=== PATIENT | male | born 1955 | race Caucasian/White ===

== ENCOUNTER 2022-12-03 05:56 | Outpatient (REF) | payer MEDICARE, SELFPAY ==
--- NOTE | 2022-12-03 | ECG_ITS ---
Test Reason : z01.818 Blood Pressure : / mmHG Vent. Rate : 073 BPM Atrial Rate : 073 BPM P-R Int : 212 ms QRS Dur : 138 ms QT Int : 414 ms P-R-T Axes : 080 -72 060 degrees QTc Int : 456 ms Sinus rhythm with 1st degree A-V block Right bundle branch block Left anterior fascicular block Bifascicular block Abnormal ECG When compared with ECG of 21-AUG-2017 09:24, SD interval has increased Vent. rate has decreased BY 38 BPM Referred By: Boni Man Electronically Signed By:Satish Richards
[2022-12-03 06:06] LABS: MANUAL DIFF FLAG NO
[2022-12-03 07:40] LABS: Basophils Percent Auto 0.6 % (0-2); Eosinophils Absolute Auto 0.4 X10*3/uL (0.0-0.4); Eosinophils Percent Auto 5.6 % (0-4); Hematocrit 36.3 % (42.0-52.0); Hemoglobin 12.1 g/dl (14.0-18.0); Imm Gran Abs Auto 0.01 X10*3/uL (0.00-0.03); Imm Gran Pct Auto 0.2 % (0.0-0.4); Immature Retic Fraction 11.5 % (2.3-13.4); Lymphocytes Percent Auto 30.7 % (20-40); Mean Corpuscular HGB Conc 33.3 g/dl (31.0-36.0); Mean Corpuscular Hemoglobin 35.3 pg (27.0-33.0); Mean Corpuscular Volume 105.8 fL (80.0-98.0); Mean Platelet Volume 9.9 fL (9.4-12.4); Monocytes Absolute Auto 0.6 X10*3/uL (0.1-1.2); Neutrophils Absolute Auto 3.5 x10*3/uL (2.0-8.3); Neutrophils Percent Auto 53.9 % (45-73); Platelet Count 283 X10*3/uL (160-400); Red Blood Count 3.43 X10*6/uL (4.60-5.80); Red Cell Distribution Width 14.1 % (11.0-16.0); Retic HGB Equivalent 40.8 pg (30.0-35.0); Reticulocyte Percent 1.3 % (0.5-1.8); Reticulocytes Absolute 0.045 X10*6/uL (0.026-0.095); White Blood Count 6.4 X10*3/uL (4.8-10.8)
[2022-12-03 08:18] LABS: Estimated Average Glucose 100 mg/dL; Hemoglobin A1c % 5.1 %
[2022-12-03 08:30] LABS: Alanine Aminotransferase 20 U/L (0-40); Alkaline Phosphatase 82 U/L (39-117); Anion Gap 13 (12-20); Aspartate Amino Transferase 22 U/L (5-37); Bilirubin Total 0.8 mg/dL (0.0-1.0); Blood Urea Nitrogen 16 mg/dL (9-16); Calcium 8.8 mg/dL (8.4-10.2); Carbon Dioxide 27 mmol/L (22-29); Chloride 107 mmol/L (96-108); Estimated Glomerular Filt Rate > 60; Glucose Random 92 mg/dL (60-115); Iron 102 mcg/dL (45-160); Percent Iron Saturation 40 % (15-50); Potassium 4.7 mmol/L (3.3-5.1); Sodium 142 mmol/L (135-145); Total Iron Binding Capacity 256 mcg/dL (228-428); Total Protein 6.5 g/dL (6.5-8.0); Unsaturated Iron Binding 154 ug/dL
[2022-12-03 09:00] LABS: Ferritin 313 ng/mL (20-250); Folate 11.3 ng/mL (> or = 4.0); Vitamin B12 484 pg/mL (200-900)
== END 2022-12-03 05:57 | disposition home or self-care (01) ==
LOC: HO.LAB 05:56
PROVIDERS: PCP Internal Medicine; Visit Provider Internal Medicine
DX: Z01.818 Encounter for other preprocedural examination (principal); K21.9 Gastro-esophageal reflux disease without esophagitis; R73.02 Impaired glucose tolerance (oral); D64.9 Anemia, unspecified
CPT/HCPCS: 36415; 80053; 82607; 82728; 82746; 83036; 83540; 84443; 85025; 85045; 93005

== ENCOUNTER 2023-07-28 11:21 | Outpatient (AMB) | payer MEDICARE, SELFPAY ==
[2023-07-28 11:22] VITALS: BP 136/68; PULSE 73; O2SAT 95; BMI 24.1
--- NOTE | 2023-07-28 11:22 | MHC.PC.OV ---
Vital Signs 07/28/23 11:22 Height 5 ft 11 in Weight 173 lb BMI 24.1 BP 136/68 Blood Pressure Location Lt brachial Position Sitting Pulse 73 Pulse Source Pulse Oximeter Pulse Oximetry (%) 95 Oxygen Delivery Method Room Air Intake Visit Reasons: Reschedule of appointment Allergies enoxaparin Allergy (Mild, Verified 07/28/23 11:23) Hypertension Medication List - Last Reconciled 07/28/23 by Boni Man MD cyanocobalamin (vitamin B-12) 3,000 mcg PO DAILY meloxicam 15 mg PO DAILY PRN Tobacco use date assessed: 03/11/23 Fall risk assessment: No Falls in past year Last assessed Fall Risk: 07/28/23 Dental Screening Dental Screen Date: 07/28/23 Did you have a dental visit in the last 12 months?: Yes Did you have a dental problem in the last 6 months where you did not have access to dental care?: No Was dental information given to patient?: Patient has dentist HPI Reschedule of appointment HPI Details 68-year-old male with a history of impaired glucose tolerance GERD chronic anemia with lumbar spinal stenosis coming in for follow-up. Patient was last seen in November 2022 and blood work was requested. Patient had laminotomy, decompression, partial facetectomy, neural foraminotomy L4-L5 right February 2023 Dr. Rahman patient has peripheral neuropathy has been followed up by Neurology. With question of Sjogren's patient also sees Rheumatology elevated MARLON and Ro antibody with neuropathy patient is a retired grayson diagnosis of undifferentiated connective tissue disease patient has been advised to monitor. Neurology [facility] will have EMG done. surgery did help pain radiating to R leg. will be seeing Gastro for colon test 08/10/2023. vision 12/[address] Hopkins. R shoulder pain deny fall but does cast fishing. patient also seen pulmonary - due to hx of problem with chest xray but so far has been good. had similar pain(dx pancreatic ca) on pain on the back R upper . [facility] Medical History (Updated 07/28/23 @ 11:54 by Boni Man MD) CTS (carpal tunnel syndrome) GERD (gastroesophageal reflux disease) Anemia Left leg DVT Surgical History (Updated 07/28/23 @ 11:52 by Boni Man MD) History of cataract surgery S/P left knee arthroscopy History of laminectomy Hip osteoarthritis Social History (Updated 03/11/23 @ 10:34 by MOUSTAPHA Dinero) Housing: House Alcohol intake: current Alcohol intake frequency: 0-2 drinks per day Alcohol type: beer Patient Tobacco Use Status: Never used Tobacco e-Cigarette/Vaping Use: Never Used Second Hand Smoke Exposure: No service: No Current occupational status: retired Cognitive needs: Yes (cane) Hearing needs: No Vision needs: No Questionnaire PHQ-9 Over the last 2 weeks, how often have you been bothered by any of the following problems? 1. Little interest or pleasure in doing things: several days 2. Feeling down, depressed, or hopeless: several days (pt lost spouse ) 3. Trouble falling or staying asleep, or sleeping too much: not at all 4. Feeling tired or having little energy: not at all 5. Poor appetite or overeating: not at all 6. Feeling bad about yourself - or that you are a failure or have let yourself or your family down: not at all 7. Trouble concentrating on things, such as reading the newspaper or watching television: not at all 8. Moving or speaking so slowly that other people could have noticed. Or the opposite - being so fidgety or restless that you have been moving around a lot more than usual: not at all 9. Thoughts that you would be better off or of hurting yourself in some way: not at all Total score: 2 Depression Screening Interpretation: Negative Depression Screening Done: Yes Source: Developed by Drs. Silvano Boudreaux, Dinah Pabon, Jacky Drummond and colleagues, with an educational mary ellen from [employer]. Thrive Questionnaire Date Thrive assessed: 12/01/22 AUDIT C Alcohol Use Questionnaire (AUDIT-C) 1. How often do you have a drink containing alcohol?: Never 3. How often do you have six or more drinks on one occasion?: Never Total Score: 0 ALEJANDRA-7 AMB Questionnaire ALEJANDRA-7 Date ALEJANDRA - 7 assessed: 12/01/22 Source: Developed by Drs. Silvano Boudreaux, Jacky Mortensen and colleagues, with an educational mary ellen from [employer]. Physical exam (Primary Care) Vital Signs: Last Vital Signs Pulse 73 07/28/23 11:22 BP 136/68 07/28/23 11:22 Pulse Ox 95 07/28/23 11:22 Oxygen Delivery Method Room Air 07/28/23 11:22 BMI result Body Mass Index 24.1 Tobacco/Smoking Status: Tobacco use Status Tobacco use date assessed 03/11/23 07/28/23 11:27 Patient Tobacco Use Status Never used Tobacco 07/28/23 11:27 e-Cigarette/Vaping Use Never Used 07/28/23 11:27 PHQ-9: PHQ-9 Score PHQ-9: Total score 2 07/28/23 11:27 Depression Screening Interpretation: Negative Thrive Assessment: Date of Thrive Assessment Date Thrive assessed 12/01/22 07/28/23 11:27 Const General: alert; No acute distress Eyes Conjunctivae: conjunctivae normal Resp Auscultation: clear to auscultation bilaterally Cardio Rate: regular rate Rhythm: regular rhythm GI Inspection: Yes normal to inspection Extrem General: Yes normal to inspection and No edema Assessment and Plan Assessment & Plan (1) Lumbar spinal stenosis: Comment: August 2020 bilateral chronic diffuse distal makes demyelinating and axonal lower extremity sensorimotor polyneuropathy lumbar spinal stenosis with cauda equina compression status post decompression February 2023 laminotomy, decompression, partial facetectomy, L4-L5 right Dr. Rahman Code(s): M48.061 - Spinal stenosis, lumbar region without neurogenic claudication Qualifiers: Neurogenic claudication status: with neurogenic claudication Qualified Code(s): M48.062 - Spinal stenosis, lumbar region with neurogenic claudication Plan: February 2023 Dr. Rahman surgery (2) Anemia: Comment: Bone marrow biopsy June 2020 unremarkable Code(s): D64.9 - Anemia, unspecified Plan: Chronic and stable (3) GERD (gastroesophageal reflux disease): Code(s): K21.9 - Gastro-esophageal reflux disease without esophagitis Plan: Avoid the foods that causes that usually spicy foods, tomato products, juices, coffee, soda and foods that your sensitive to. After eating do not lie down, allow 3-4 hours before in lie down. And keep the head of bed above 30 degrees to avoid the acid from going up. (4) Undifferentiated connective tissue disease: Code(s): M35.9 - Systemic involvement of connective tissue, unspecified Plan: Patient is being followed up by Rheumatology and continuing to be monitored (5) Bicipital tendinitis of right shoulder: Code(s): M75.21 - Bicipital tendinitis, right shoulder Plan: Discussed about the diagnosis if persist referral to ortho for possible injection Orders: Orders US abdomen complete Today K21.9 - Gastro-esophageal reflux disease without esophagitis, R79.89 - Other specified abnormal findings of blood chemistry Coding Level of Care Code Est Pt Level 4 (14958) Diagnoses Spinal stenosis of lumbar region with neurogenic claudication M48.062 Neurogenic claudication status: with neurogenic claudication Anemia D64.9 GERD (gastroesophageal reflux disease) K21.9 Undifferentiated connective tissue disease M35.9 Bicipital tendinitis of right shoulder M75.21
== END 2023-07-28 12:05 | disposition home or self-care (01) ==
PROVIDERS: PCP Internal Medicine; Visit Provider Internal Medicine
DX: M48.062 Spinal stenosis, lumbar region with neurogenic claudication (principal); D64.9 Anemia, unspecified; K21.9 Gastro-esophageal reflux disease without esophagitis; M35.9 Systemic involvement of connective tissue, unspecified; M75.21 Bicipital tendinitis, right shoulder
CPT/HCPCS: 99214

== ENCOUNTER 2023-08-12 08:48 | Outpatient (REF) | payer MEDICARE, SELFPAY ==
--- NOTE | ~2023-08-12 | US_ITS ---
EXAMINATION: US ABDOMEN COMPLETE CLINICAL INFORMATION: Other specified abnormal findings of blood chemistry. COMPARISON: None available. TECHNIQUE: Real-time imaging of the abdominal viscera. Technically limited study secondary to bowel gas and body habitus. FINDINGS: Exam limited, bowel gas obscured retroperitoneal structures. PANCREAS: Pancreas not well visualized obscured mostly by bowel gas. ABDOMINAL AORTA: Not fully visualized, nonaneurysmal. Measure up to 2.5 cm there are atheromatous plaques. INFERIOR VENA CAVA: Visualized portions are normal. LIVER: Normal. The liver is normal in size. The liver contour is normal. Parenchymal echogenicity is normal. No focal hepatic lesion. There is no intrahepatic biliary duct dilatation seen. GALLBLADDER: Echogenic material in the gallbladder probably gallbladder debris The gallbladder is physiologically distended without evidence of stones, polyps, wall thickening or pericholecystic fluid. COMMON BILE DUCT: Normal in caliber measuring 0.13 cm in diameter. RIGHT KIDNEY: Normal. No hydronephrosis. No renal calculi or focal parenchymal lesions. The kidney measures 11.0 cm in maximum dimension. LEFT KIDNEY: Cyst in the left kidney middle pole 9 x 7 x 7 mm. No hydronephrosis or renal calculi. The kidney measures 11.2 cm in maximum dimension. SPLEEN: Normal. The spleen measures 8.9 cm in maximum dimension. FREE FLUID: None. US/US abdomen complete IMPRESSION: * Exam limited by patient's body habitus and bowel gas. * Echogenic material in the gallbladder probably gallbladder debris. * Left renal cyst. * Pancreas not well visualized obscured by bowel gas.
== END 2023-08-12 08:49 | disposition home or self-care (01) ==
LOC: HO.HMGCX 08:48
PROVIDERS: PCP Internal Medicine; Visit Provider Internal Medicine
DX: R79.89 Other specified abnormal findings of blood chemistry (principal); K21.9 Gastro-esophageal reflux disease without esophagitis
CPT/HCPCS: 76700

== ENCOUNTER 2023-08-28 08:28 | Day surgery (SDC) | payer MEDICARE, SELFPAY ==
[2023-08-26 13:46] VITALS: BMI 24.1
--- NOTE | 2023-08-26 14:19 | HO.ANESPROP2 ---
Documented by User: Alyssa Suresh NP 08/26/23 14:19 HPI - Anesthesia Eval Consult details Narrative: 68yo M for Colonoscopy PMFSH Active Problems Active Problems: All Active Problems (Updated 08/26/23 @ 12:29 by Latasha Brown RN) Bicipital tendinitis of right shoulder (Acute) Undifferentiated connective tissue disease (Acute) COVID-19 virus infection (Acute) First degree AV block (Acute) Preop exam for internal medicine (Acute) Impaired glucose tolerance (Acute) Impacted cerumen of both ears (Acute) Laceration (Acute) Lumbar spinal stenosis (Acute) GERD (gastroesophageal reflux disease) (Acute) Anemia (Acute) Left leg DVT (Acute) Past Medical History Medical History Inguinal hernia Epigastric pain Neuropathy Cervical radiculitis Epigastric hernia Spinal stenosis CTS (carpal tunnel syndrome) GERD (gastroesophageal reflux disease) Anemia Left leg DVT Surgical History Surgical History History of lumbar laminectomy for spinal cord decompression History of carpal tunnel release History of bone marrow biopsy Status post left hip replacement History of cataract surgery S/P left knee arthroscopy History of laminectomy Hip osteoarthritis Social History Social History Housing: House Alcohol intake: current Alcohol intake frequency: 0-2 drinks per day Alcohol type: beer Patient Tobacco Use Status: Never used Tobacco e-Cigarette/Vaping Use: Never Used Second Hand Smoke Exposure: No Use of substances other than those prescribed or required for medical reasons: No Are you DNR?: No Advance Directives: No Advance Directives Information Provided: Yes service: No Current occupational status: retired Cognitive needs: Yes (cane) Hearing needs: No Vision needs: No Meds Allergies Allergy/AdvReac Type Severity Reaction Status Date / Time enoxaparin Allergy Mild Hypertensio Verified 08/28/23 08:38 n Home Medications Medication Instructions Recorded Confirmed Last Taken Type meloxicam 15 mg tablet 15 mg PO DAILY PRN Pain 12/01/22 08/26/23 07/24/23 History cyanocobalamin (vitamin B-12) 3,000 mcg PO DAILY 07/28/23 08/26/23 Unknown History 3,000 mcg capsule Exam Height,Weight and Vital Signs: Height 5 ft 11 in Weight 78.471 kg Assessment and Plan Assessment Anesthesia Assessment: Chart Reviewed Documented by User: Marina Hardin MD 08/28/23 09:06 [facility] Past Medical History Medical History Inguinal hernia Epigastric pain Neuropathy Cervical radiculitis Epigastric hernia Spinal stenosis CTS (carpal tunnel syndrome) GERD (gastroesophageal reflux disease) Anemia Left leg DVT Surgical History Surgical History History of lumbar laminectomy for spinal cord decompression History of carpal tunnel release History of bone marrow biopsy Status post left hip replacement History of cataract surgery S/P left knee arthroscopy History of laminectomy Hip osteoarthritis History of Problems with Anesthesia: No Social History Social History Housing: House Alcohol intake: current Alcohol intake frequency: 0-2 drinks per day Alcohol type: beer Patient Tobacco Use Status: Never used Tobacco e-Cigarette/Vaping Use: Never Used Second Hand Smoke Exposure: No Use of substances other than those prescribed or required for medical reasons: No Are you DNR?: No Advance Directives: No Advance Directives Information Provided: Yes service: No Current occupational status: retired Cognitive needs: Yes (cane) Hearing needs: No Vision needs: No Meds Allergies Allergy/AdvReac Type Severity Reaction Status Date / Time enoxaparin Allergy Mild Hypertensio Verified 08/28/23 08:38 n Home Medications Medication Instructions Recorded Confirmed Last Taken Type meloxicam 15 mg tablet 15 mg PO DAILY PRN Pain 12/01/22 08/26/23 07/24/23 History cyanocobalamin (vitamin B-12) 3,000 mcg PO DAILY 07/28/23 08/26/23 Unknown History 3,000 mcg capsule Exam Airway Mallampati Class: II TM Dist: >3cm Neck ROM: Full Loose/Missing/Broken Teeth: No Heart: RRR Lungs: CTA Assessment and Plan Assessment Anesthesia Assessment: Anesthesia Plan Discussed Final Anesthetic Review History of Problems with Anesthesia: No NPO: Yes ASA Class: II Final Preanesthetic Review: Meds/Allgs Chart Reviewed, Consent Obtained/Reviewed and Anes Risks/Benef Reviewed Patient Risk: Low Procedure Risk: Low Anesthetic Plan Anesthetic Plan: MAC: Disposition: Standard PACU
[2023-08-28 08:32] VITALS: BMI 22.9
[2023-08-28 08:54] VITALS: BP 136/77; PULSE 109; RESP 16; TEMP 36.6; O2SAT 99
[2023-08-28] MEDS: Lactated Ringers 1,000 ML 100 ML IVCONT (08:55)
--- NOTE | 2023-08-28 09:16 | MHC.SHP ---
Pre-Procedural Eval Section A Date of Service: 08/28/23 The patient is an INPATIENT: No Changes since office visit: No Cold of Flu in the past 2 weeks, No New Medical Problems, No Changes in Medication and No Patient answered all questions The History & Physical has been completed within 30 days and I have reviewed it.: Yes Section B Chief Complaint: Encounter for screening for malignant neoplasm of Allergies: Allergies Allergy/AdvReac Type Severity Reaction Status Date / Time enoxaparin Allergy Mild Hypertensio Verified 08/28/23 08:38 n Plan I have reviewed the history and physical and performed a pertinent physical examination on my patient. No changes have occurred unless specified. Time Spent With Patient Time: Total time managing care of this patient today ____ minutes.
[2023-08-28 09:59] VITALS: BP 90/61; PULSE 85; RESP 16; TEMP 36.4; O2SAT 96
[2023-08-28 10:14] VITALS: BP 112/66; PULSE 86; RESP 16; TEMP 36.4; O2SAT 96
--- NOTE | 2023-08-28 10:20 | OP_ITS ---
DATE OF SERVICE: 08/28/2023 SURGEON: Dwaine Garcia MD INDICATIONS: Colon cancer screening. PREOPERATIVE DIAGNOSIS: POSTOPERATIVE DIAGNOSIS: PROCEDURE PERFORMED: Colonoscopy to the terminal ileum with snare polypectomy. ESTIMATED BLOOD LOSS: COMPLICATIONS: ANESTHESIA: Monitored anesthesia care. ASSISTANTS: SPECIMENS: DESCRIPTION OF PROCEDURE: A history and physical were performed. The risks and benefits of the procedure were explained to the patient and informed consent was obtained. The patient was placed in the left lateral decubitus position. A digital rectal exam was performed and was found to be normal. The Olympus pediatric video colonoscope was introduced into the rectum and advanced to the cecum. The cecum was identified by transillumination, palpation, and identification of ileocecal valve. Examination was performed and the scope was removed. He tolerated the procedure well and was taken to recovery in stable condition. FINDINGS: The terminal ileum was examined and appeared normal. The visualized colonic mucosa was normal. The quality of the prep was good. A single polyp measuring 10 mm was identified in the right colon and removed with snare. The polyp was recovered via suction. No other polyps were identified. There was mild sigmoid diverticulosis. Retroflexed examination showed moderate-sized internal hemorrhoids. IMPRESSION: Colon polyp. RECOMMENDATION: Follow up with the biopsy results. MD CHARLES Lopez/LOWL / [id number]
== END 2023-08-28 10:28 | disposition home or self-care (01) ==
PROVIDERS: PCP Internal Medicine; Visit Provider Internal Medicine Gastroenterology
PROC: 0DJD8ZZ Inspection of Lower Intestinal Tract, Via Natural or Artificial Opening Endoscopic (ICD-10-PCS; CPT 45378; principal; 2023-08-28 09:50)
DX: Z12.11 Encounter for screening for malignant neoplasm of colon (principal); D12.4 Benign neoplasm of descending colon; K57.30 Diverticulosis of large intestine without perforation or abscess without bleeding; K64.8 Other hemorrhoids; I44.0 Atrioventricular block, first degree; K21.9 Gastro-esophageal reflux disease without esophagitis; D64.9 Anemia, unspecified; Z86.718 Personal history of other venous thrombosis and embolism; Z79.899 Other long term (current) drug therapy
CPT/HCPCS: 45385; 88305; J2250; J2704

== ENCOUNTER 2023-12-03 08:53 | Outpatient (AMB) | payer MEDICARE, SELFPAY ==
[2023-12-03 08:59] VITALS: BP 140/70; PULSE 82; O2SAT 98; BMI 24.0
--- NOTE | 2023-12-03 08:59 | AM.OFFVISMDC ---
Intake Vital Signs 12/03/23 08:59 Height 5 ft 11 in Weight 172 lb BMI 24.0 BP 140/70 H Blood Pressure Location Lt brachial Position Sitting Pulse 82 Pulse Source Pulse Oximeter Pulse Oximetry (%) 98 Oxygen Delivery Method Room Air Intake Visit Reasons: ANNUAL Intake Note: Patient states he did have coffee prior to appt. Allergies enoxaparin Allergy (Mild, Verified 12/03/23 09:00) Hypertension Medication List - Last Reconciled 12/03/23 by Boni Man MD cyanocobalamin (vitamin B-12) 3,000 mcg PO DAILY HPI ANNUAL HPI Details 68-year-old male with a history of lumbar spinal stenosis chronic anemia GERD undifferentiated connective tissue disease coming in for physical exam last seen in July 2023. Colonoscopy done August had a polyp that was negative. Patient has also seen Pulmonary normal. Ultrasound done showing gallbladder debris left renal cyst. MRI back done also with severe spinal stenosis. [facility] Medical History Inguinal hernia Epigastric pain Neuropathy Cervical radiculitis Epigastric hernia Spinal stenosis CTS (carpal tunnel syndrome) GERD (gastroesophageal reflux disease) Anemia Left leg DVT Surgical History History of lumbar laminectomy for spinal cord decompression History of carpal tunnel release History of bone marrow biopsy Status post left hip replacement History of cataract surgery S/P left knee arthroscopy History of laminectomy Hip osteoarthritis Social History (Updated 12/03/23 @ 09:36 by Boni Man MD) Housing: House Alcohol intake: current Alcohol intake frequency: 0-2 drinks per day Alcohol type: beer Comment: QOD 1-2 drinks Patient Tobacco Use Status: Never used Tobacco e-Cigarette/Vaping Use: Never Used Second Hand Smoke Exposure: No service: No Current occupational status: retired Cognitive needs: Yes (cane) Hearing needs: No Vision needs: No Questionnaire Medicare Wellness Checkup [age] What gender do you identify with?: male During the past 4 weeks, how much have you been bothered by emotional problems such as feeling anxious, depressed, irritable, sad or downhearted, and blue?: slightly During the past 4 weeks, has your physical & emotional health limited your social activities with family, friends, neighbors, or groups?: slightly During the past 4 weeks, how much bodily pain have you generally had?: very mild pain During the past 4 weeks, was someone available to help you if you needed & wanted help?: yes, as much as I wanted During the past 4 weeks, what was the hardest physical activity you could do for at least 2 minutes?: moderate Can you get to places out of walking distance without help? (For eg., can you travel alone on buses, taxis or drive your car?): Yes Can you go shopping for groceries or clothes without someone's help?: Yes Can you prepare your own meals?: Yes Can you do your housework without help?: Yes Because of any health problems, do you need the help of another person with your personal care needs such as eating, bathing, dressing or getting around the house?: No Can you handle your own money without help?: Yes During the past 4 weeks, how would you rate your health in general?: good During the past 4 weeks how have things been going for you?: pretty well Are you having difficulties driving your car?: no Do you always fasten your seat belt when you are in a car?: yes, usually During past 4 weeks, have you been bothered by the following: never: Falling or dizzy when standing up, Sexual problems?, Trouble eating well?, Teeth or denture problems?, Problems using the telephone? and Tiredness or fatigue? Have you fallen 2 or more times in the past year?: No Are you afraid of falling?: No Are you a smoker?: no During the past 4 weeks, how many drinks of wine, beer, or other alcoholic beverages did you have?: 6-9 drinks per week Do you exercise for about 20 minutes 3 or more times a week?: yes, all the time Have you been given information to help with the following?: no: Hazards in your house that might hurt you? and no: Keeping track of your medications? How often do you have trouble taking medicines the way you have been told to take them?: I do not have to take medicine How confident are you that you can control & manage most of your health problems?: very confident What is your race?: White PHQ-9 Over the last 2 weeks, how often have you been bothered by any of the following problems? 1. Little interest or pleasure in doing things: not at all 2. Feeling down, depressed, or hopeless: not at all (pt lost spouse ) 3. Trouble falling or staying asleep, or sleeping too much: not at all 4. Feeling tired or having little energy: not at all 5. Poor appetite or overeating: not at all 6. Feeling bad about yourself - or that you are a failure or have let yourself or your family down: not at all 7. Trouble concentrating on things, such as reading the newspaper or watching television: not at all 8. Moving or speaking so slowly that other people could have noticed. Or the opposite - being so fidgety or restless that you have been moving around a lot more than usual: not at all 9. Thoughts that you would be better off or of hurting yourself in some way: not at all Total score: 0 Depression Screening Interpretation: Negative Depression Screening Done: Yes 60520 - PHQ-9 Billing: Yes Source: Developed by Drs. Silvano Boudreaux, Dinah Pabon, Jacky Drummond and colleagues, with an educational mary ellen from [employer]. Thrive Questionnaire Date Thrive assessed: 12/03/23 I am a: Patient What is your living situation today?: I have a steady place to live Within the past 12 months, did the food you bought not last and you didn't have the money to get more?: Never true Within the past 12 months, did you worry whether your food would run out before you got money to buy more?: Never true Do you have trouble paying for medicines?: No Do you have trouble getting transportation to medical appointments?: No Do you have trouble paying your heating and electricity bill?: No Do you have trouble taking care of your child, family member or friend?: No Do you have trouble with day-to-day activities such as bathing, preparing meals, shopping, managing finances, etc.?: No Are you currently unemployed and looking for a job?: No Are you interested in more education?: No Currently or been in a relationship where the following occur: no concerns reported THRIVE Score: 0 ALEJANDRA-7 AMB Questionnaire ALEJANDAR-7 Date ALEJANDRA - 7 assessed: 12/03/23 Feeling nervous, anxious, or on edge: 1 = Several days Not being able to stop or control worryin = Several days Worrying too much about different things: 1 = Several days Trouble relaxin = Not at all Being so restless that it is hard to sit still: 0 = Not at all Becoming easily annoyed or irritable: 0 = Not at all Feeling afraid as if something awful might happen: 0 = Not at all Total ALEJANDRA-7 score (0-4 normal; 5-9 mild; 10-14 moderate; 15-21 severe): 3 Source: Developed by Drs. Silvano Boudreaux, Dinah Pabon, Jacky Drummond and colleagues, with an educational mary ellen from [employer]. Review of Systems Const Denies poor appetite and Denies weakness Eyes Denies no additional complaints ENT Reports Normal hearing present, Denies dizziness, Denies nasal congestion, Denies tinnitus and Denies sore throat Card Denies chest pain, Denies syncope, Denies rapid heart rate and Denies dyspnea Resp Denies cough and Denies dyspnea GI Denies change in stool character, Reports constipation, Denies diarrhea, Denies nausea and Denies vomiting Denies dysuria and Denies urinary frequency Neuro Reports Normal hearing present, Denies confusion, Denies dizziness, Denies syncope and Denies weakness Psych Denies confusion Physical Exam Vital Signs: Last Vital Signs Pulse 82 12/03/23 08:59 BP 140/70 H 12/03/23 08:59 Pulse Ox 98 12/03/23 08:59 Oxygen Delivery Method Room Air 12/03/23 08:59 BMI result Body Mass Index 24.0 Const General: No confusion Orientation/consciousness: No confusion HEENT Head: Yes normocephalic Ears: external ears normal and TM's normal bilaterally Face and sinus: Yes normal facial exam Mouth: moist mucous membranes Throat: Yes tonsils normal Eyes Conjunctivae: conjunctivae normal Pupils: Equal, round and reactive pupils present and Pupil accommodation reflex normal Direct Ophthalmoscopy: normal light reflex Neck Neck: No lymphadenopathy Thyroid: Thyroid normal Chest Chest palpation & inspection: normal inspection of the chest Resp Effort & Inspection: normal respiratory effort and no audible wheezes Auscultation: clear to auscultation bilaterally, no crackles, no wheezes and lung sounds not diminished Cardio Rate: regular rate Rhythm: regular rhythm Peripheral pulses: radial pulses present and dorsalis pedis present GI Palpation (GI): no masses Auscultation: normal bowel sounds and normoactive bowel sounds Rectal Exam - Male: Yes deferred Skin General skin exam: no rashes or lesions noted Rashes: no rashes Neuro General: No confusion Cranial nerves: Yes Equal, round and reactive pupils present and Yes Normal hearing present Cognition (Neuro): normal cognition Gait exam (Neuro): Normal gait present Motor exam (neuro): 5/5 motor strength present throughout Deep tendon reflexes (DTR's): Right brachioradialis reflex intensity grade: 2+, Left brachioradialis reflex intensity grade: 2+, Right patellar reflex intensity grade: 2+ and Left patellar reflex intensity grade: 2+ Extrem General: No edema Assessment & Plan Assessment & Plan (1) Medicare annual wellness visit, subsequent: Code(s): Z00.00 - Encounter for general adult medical examination without abnormal findings Plan: Keep well hydrated, eat healthy and keep active (2) GERD (gastroesophageal reflux disease): Code(s): K21.9 - Gastro-esophageal reflux disease without esophagitis Plan: Avoid the foods that causes that usually spicy foods, tomato products, juices, coffee, soda and foods that your sensitive to. After eating do not lie down, allow 3-4 hours before in lie down. And keep the head of bed above 30 degrees to avoid the acid from going up. 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 Rahman 11/2023 severe spinal stenosis L2-3, 4-5 post decompression L 2-3 L45 Code(s): M48.061 - Spinal stenosis, lumbar region without neurogenic claudication Qualifiers: Neurogenic claudication status: with neurogenic claudication Qualified Code(s): M48.062 - Spinal stenosis, lumbar region with neurogenic claudication Plan: Keep active (4) Impaired glucose tolerance: Code(s): R73.02 - Impaired glucose tolerance (oral) Plan: Decrease the amount of carbohydrate intake, pasta, bread, rice and potatoes are all sugar and that is aside from all the sweet stuff, remember that fruits are good but they are Sweet also. Blood sugar done negative (5) Anemia: Comment: Bone marrow biopsy June 2020 unremarkable Code(s): D64.9 - Anemia, unspecified Plan: Chronic and stable Orders: Orders Thyroid Stimulating Hormone Today K21.9 - Gastro-esophageal reflux disease without esophagitis Vitamin B12 and Folate Today K21.9 - Gastro-esophageal reflux disease without esophagitis Complete Blood Count Auto Diff Today K21.9 - Gastro-esophageal reflux disease without esophagitis Comprehensive Met. Panel Today K21.9 - Gastro-esophageal reflux disease without esophagitis Free T4 (Free Thyroxine) Today K21.9 - Gastro-esophageal reflux disease without esophagitis Lipid Panel Today E78.00 - Pure hypercholesterolemia, unspecified, K21.9 - Gastro-esophageal reflux disease without esophagitis Prostate Specific Antigen Scr Today K21.9 - Gastro-esophageal reflux disease without esophagitis Quality Reporting (2019) Depression/Bipolar (159/160/161/177) PHQ-9: Total score: 0 Coding Level of Care Code Medicare Subsequent (G0439) Diagnoses Medicare annual wellness visit, subsequent Z00.00 GERD (gastroesophageal reflux disease) K21.9 Spinal stenosis of lumbar region with neurogenic claudication M48.062 Neurogenic claudication status: with neurogenic claudication Impaired glucose tolerance R73.02 Anemia D64.9
== END 2023-12-03 11:14 | disposition home or self-care (01) ==
PROVIDERS: PCP Internal Medicine; Visit Provider Internal Medicine
DX: Z00.00 Encounter for general adult medical examination without abnormal findings (principal); K21.9 Gastro-esophageal reflux disease without esophagitis; M48.062 Spinal stenosis, lumbar region with neurogenic claudication; R73.02 Impaired glucose tolerance (oral); D64.9 Anemia, unspecified
CPT/HCPCS: G0439

== ENCOUNTER 2023-12-04 06:03 | Outpatient (REF) | payer MEDICARE, SELFPAY ==
[2023-12-04 06:20] LABS: MANUAL DIFF FLAG NO
[2023-12-04 06:55] LABS: Basophils Percent Auto 0.9 % (0-2); Eosinophils Absolute Auto 0.4 X10*3/uL (0.0-0.4); Eosinophils Percent Auto 7.6 % (0-4); Hematocrit 35.1 % (42.0-52.0); Hemoglobin 11.8 g/dl (14.0-18.0); Imm Gran Abs Auto 0.01 X10*3/uL (0.00-0.03); Imm Gran Pct Auto 0.2 % (0.0-0.4); Lymphocytes Absolute Auto 1.5 X10*3/uL (1.2-4.9); Lymphocytes Percent Auto 32.3 % (20-40); Mean Corpuscular HGB Conc 33.6 g/dl (31.0-36.0); Mean Corpuscular Hemoglobin 35.3 pg (27.0-33.0); Mean Corpuscular Volume 105.1 fL (80.0-98.0); Mean Platelet Volume 9.6 fL (9.4-12.4); Monocytes Absolute Auto 0.5 X10*3/uL (0.1-1.2); Monocytes Percent Auto 11.1 % (2-11); Neutrophils Absolute Auto 2.2 x10*3/uL (2.0-8.3); Neutrophils Percent Auto 47.9 % (45-73); Platelet Count 240 X10*3/uL (160-400); Red Blood Count 3.34 X10*6/uL (4.60-5.80); Red Cell Distribution Width 14.1 % (11.0-16.0); White Blood Count 4.6 X10*3/uL (4.8-10.8)
[2023-12-04 07:20] LABS: Alanine Aminotransferase 17 U/L (0-40); Albumin Level 3.8 g/dL (3.5-5.0); Alkaline Phosphatase 74 U/L (39-117); Anion Gap 10 (12-20); Aspartate Amino Transferase 22 U/L (5-37); Bilirubin Total 0.6 mg/dL (0.0-1.0); Blood Urea Nitrogen 16 mg/dL (9-16); Carbon Dioxide 27 mmol/L (22-29); Chloride 109 mmol/L (96-108); Cholesterol 180 mg/dL (<200); Estimated Glomerular Filt Rate > 60; Glucose Random 100 mg/dL (60-115); HDL Cholesterol 62 mg/dL (>40); LDL Cholesterol Calculated 107 mg/dL (<100); Potassium 4.3 mmol/L (3.3-5.1); Sodium 142 mmol/L (135-145); Total Protein 6.5 g/dL (6.5-8.0); Triglycerides 56 mg/dL (<150)
[2023-12-04 07:38] LABS: Free T4 (Free Thyroxine) 1.04 ng/dL (0.71-1.85); Thyroid Stimulating Hormone 2.06 uIU/mL (0.32-4.0)
[2023-12-04 07:46] LABS: Folate 8.9 ng/mL (> or = 4.0); Prostate Specific Antigen Scr 0.83 ng/mL (<0.05-4.0); Vitamin B12 1052 pg/mL (200-900)
== END 2023-12-04 06:04 | disposition home or self-care (01) ==
LOC: HO.LAB 06:03
PROVIDERS: PCP Internal Medicine; Visit Provider Internal Medicine
DX: Z01.818 Encounter for other preprocedural examination (principal); K21.9 Gastro-esophageal reflux disease without esophagitis; E78.00 Pure hypercholesterolemia, unspecified; Z12.5 Encounter for screening for malignant neoplasm of prostate
CPT/HCPCS: 36415; 80053; 80061; 82607; 82746; 84153; 84439; 84443; 85025

== ENCOUNTER 2024-12-07 09:06 | Outpatient (AMB) | payer MEDICARE, SELFPAY ==
--- NOTE | 2024-12-07 09:22 | AM.OFFVISMDC ---
Intake Vital Signs 12/07/24 09:23 Height 5 ft 11 in Weight 171 lb BMI 23.8 BP 136/68 Blood Pressure Location Lt brachial Position Sitting Pulse 90 Pulse Source Pulse Oximeter Temp 97.1 F Temp Source Temporal Artery Scan Pulse Oximetry (%) 98 Oxygen Delivery Method Room Air Intake Visit Reasons: Jasev [id number] Intake Note: Patient is here for an Annual Wellness Visit. Whipped Topping Supervisor Required: No Flag Football Coach: Flag Football Coach offered & declined Accompanied by: Self / Same As Patient Allergies enoxaparin Allergy (Mild, Verified 12/07/24 09:23) Hypertension Medication List - Last Reconciled 12/07/24 by Boni Man MD cyanocobalamin (vitamin B-12) 3,000 mcg PO DAILY cyclobenzaprine 10 mg PO TID PRN HPI Swv G0439 HPI Details February [address] Burns, Pulmonary Dr. Matson, RAJI Dr. Lacey simons [facility] GI Dr. Garcia [facility] Medical History Inguinal hernia Epigastric pain Neuropathy Cervical radiculitis Epigastric hernia Spinal stenosis CTS (carpal tunnel syndrome) GERD (gastroesophageal reflux disease) Anemia Left leg DVT Surgical History History of lumbar laminectomy for spinal cord decompression History of carpal tunnel release History of bone marrow biopsy Status post left hip replacement History of cataract surgery S/P left knee arthroscopy History of laminectomy Hip osteoarthritis Social History (Updated 12/07/24 @ 09:43 by Boni Man MD) Housing: House Alcohol intake: current Alcohol intake frequency: 0-2 drinks per day Alcohol type: beer Comment: 2 x a week 1-2 drinks Patient Tobacco Use Status: Never used Tobacco e-Cigarette/Vaping Use: Never Used Second Hand Smoke Exposure: No service: No Current occupational status: retired Cognitive needs: Yes (cane) Hearing needs: No Vision needs: No Questionnaire Medicare Wellness Checkup [age] What gender do you identify with?: male During the past 4 weeks, how much have you been bothered by emotional problems such as feeling anxious, depressed, irritable, sad or downhearted, and blue?: not at all During the past 4 weeks, has your physical & emotional health limited your social activities with family, friends, neighbors, or groups?: slightly During the past 4 weeks, how much bodily pain have you generally had?: moderate pain During the past 4 weeks, was someone available to help you if you needed & wanted help?: yes, some During the past 4 weeks, what was the hardest physical activity you could do for at least 2 minutes?: moderate Can you get to places out of walking distance without help? (For eg., can you travel alone on buses, taxis or drive your car?): Yes Can you go shopping for groceries or clothes without someone's help?: Yes Can you prepare your own meals?: Yes Can you do your housework without help?: Yes Because of any health problems, do you need the help of another person with your personal care needs such as eating, bathing, dressing or getting around the house?: No Can you handle your own money without help?: Yes During the past 4 weeks, how would you rate your health in general?: good During the past 4 weeks how have things been going for you?: good & bad parts about equal Are you having difficulties driving your car?: no Do you always fasten your seat belt when you are in a car?: yes, usually During past 4 weeks, have you been bothered by the following: never: Falling or dizzy when standing up, Sexual problems?, Trouble eating well?, Teeth or denture problems?, Problems using the telephone? and Tiredness or fatigue? Have you fallen 2 or more times in the past year?: No Are you afraid of falling?: No Are you a smoker?: no During the past 4 weeks, how many drinks of wine, beer, or other alcoholic beverages did you have?: 2-5 drinks per week Do you exercise for about 20 minutes 3 or more times a week?: yes, all the time Have you been given information to help with the following?: no: Hazards in your house that might hurt you? and no: Keeping track of your medications? How often do you have trouble taking medicines the way you have been told to take them?: I do not have to take medicine How confident are you that you can control & manage most of your health problems?: very confident What is your race?: White PHQ-9 Over the last 2 weeks, how often have you been bothered by any of the following problems? 1. Little interest or pleasure in doing things: not at all 2. Feeling down, depressed, or hopeless: not at all 3. Trouble falling or staying asleep, or sleeping too much: not at all 4. Feeling tired or having little energy: not at all 5. Poor appetite or overeating: not at all 6. Feeling bad about yourself - or that you are a failure or have let yourself or your family down: not at all 7. Trouble concentrating on things, such as reading the newspaper or watching television: not at all 8. Moving or speaking so slowly that other people could have noticed. Or the opposite - being so fidgety or restless that you have been moving around a lot more than usual: not at all 9. Thoughts that you would be better off or of hurting yourself in some way: not at all Total score: 0 Depression Screening Interpretation: Negative Depression Screening Done: Yes Source: Developed by Drs. Silvano Boudreaux, Dinah Pabon, Jacky Drummond and colleagues, with an educational mary ellen from [employer]. Thrive Questionnaire Date Thrive assessed: 12/07/24 I am a: Patient What is your living situation today?: I have a steady place to live Within the past 12 months, did the food you bought not last and you didn't have the money to get more?: Never true Within the past 12 months, did you worry whether your food would run out before you got money to buy more?: Never true Do you have trouble paying for medicines?: No Do you have trouble getting transportation to medical appointments?: No Do you have trouble paying your heating and electricity bill?: No Do you have trouble taking care of your child, family member or friend?: No Do you have trouble with day-to-day activities such as bathing, preparing meals, shopping, managing finances, etc.?: No Are you currently unemployed and looking for a job?: No Are you interested in more education?: No Please select the resources that you would like help with: None Currently or been in a relationship where the following occur: No concerns reported THRIVE Score: 0 ALEJANDRA-7 AMB Questionnaire ALEJANDRA-7 Date ALEJANDRA - 7 assessed: 12/07/24 Feeling nervous, anxious, or on edge: 0 = Not at all Not being able to stop or control worryin = Not at all Worrying too much about different things: 0 = Not at all Trouble relaxin = Not at all Being so restless that it is hard to sit still: 0 = Not at all Becoming easily annoyed or irritable: 0 = Not at all Feeling afraid as if something awful might happen: 0 = Not at all Total ALEJANDRA-7 score (0-4 normal; 5-9 mild; 10-14 moderate; 15-21 severe): 0 Source: Developed by Drs. Silvano Boudreaux, Dinah Pabon, Jacky Drummond and colleagues, with an educational mary ellen from [employer]. AUDIT C Alcohol Use Questionnaire (AUDIT-C) 2. How many drinks containing alcohol do you have on a typical day when you are drinking?: 1 or 2 3. How often do you have six or more drinks on one occasion?: Never Total Score: 0 Review of Systems Const Denies poor appetite and Denies weakness Eyes Denies no additional complaints ENT Reports Normal hearing present, Denies dizziness, Denies nasal congestion, Denies tinnitus and Denies sore throat Card Denies chest pain, Denies syncope, Denies rapid heart rate and Denies dyspnea Resp Denies cough and Denies dyspnea GI Denies change in stool character, Reports constipation, Denies diarrhea, Denies nausea and Denies vomiting Denies dysuria and Denies urinary frequency Neuro Reports Normal hearing present, Denies confusion, Denies dizziness, Denies syncope and Denies weakness Psych Denies confusion Physical Exam Vital Signs: Last Vital Signs Temp 97.1 F 12/07/24 09:23 Pulse 90 12/07/24 09:23 BP 136/68 12/07/24 09:23 Pulse Ox 98 12/07/24 09:23 Oxygen Delivery Method Room Air 12/07/24 09:23 BMI result Body Mass Index 23.8 Const General: No confusion Orientation/consciousness: No confusion HEENT Head: Yes normocephalic Ears: external ears normal and TM's normal bilaterally Face and sinus: Yes normal facial exam Mouth: moist mucous membranes Throat: Yes tonsils normal Eyes Conjunctivae: conjunctivae normal Pupils: Equal, round and reactive pupils present and Pupil accommodation reflex normal Direct Ophthalmoscopy: normal light reflex Neck Neck: No lymphadenopathy Thyroid: Thyroid normal Chest Chest palpation & inspection: normal inspection of the chest Resp Effort & Inspection: normal respiratory effort and no audible wheezes Auscultation: clear to auscultation bilaterally, no crackles, no wheezes and lung sounds not diminished Cardio Rate: regular rate Rhythm: regular rhythm Peripheral pulses: radial pulses present and dorsalis pedis present GI Other: guaiac negative prostate mild enlargement, no masses Palpation (GI): no masses Auscultation: normal bowel sounds and normoactive bowel sounds Male General Exam: Yes normal external exam Skin General skin exam: no rashes or lesions noted Rashes: no rashes Neuro General: No confusion Cranial nerves: Yes Equal, round and reactive pupils present and Yes Normal hearing present Cognition (Neuro): normal cognition Gait exam (Neuro): Normal gait present Motor exam (neuro): 5/5 motor strength present throughout Deep tendon reflexes (DTR's): Right brachioradialis reflex intensity grade: 2+, Left brachioradialis reflex intensity grade: 2+, Right patellar reflex intensity grade: 2+ and Left patellar reflex intensity grade: 2+ Extrem General: No edema Assessment & Plan Assessment & Plan (1) Medicare annual wellness visit, subsequent: Code(s): Z00.00 - Encounter for general adult medical examination without abnormal findings Plan: Patient is advised to eat healthy, keep well hydrated, keep active and have adequate sleep. (2) Undifferentiated connective tissue disease: Code(s): M35.9 - Systemic involvement of connective tissue, unspecified Plan: Patient continued to be followed up. 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 Rahman 11/2023 severe spinal stenosis L2-3, 4-5 post decompression L 2-3 L45 Code(s): M48.061 - Spinal stenosis, lumbar region without neurogenic claudication Qualifiers: Neurogenic claudication status: with neurogenic claudication Qualified Code(s): M48.062 - Spinal stenosis, lumbar region with neurogenic claudication Plan: Continue to keep active (5) Degenerative disc disease, cervical: Code(s): M50.30 - Other cervical disc degeneration, unspecified cervical region Plan: Continuing to keep active (6) Anemia: Comment: Bone marrow biopsy June 2020 unremarkable Code(s): D64.9 - Anemia, unspecified Plan: Chronic and stable (7) GERD (gastroesophageal reflux disease): Code(s): K21.9 - Gastro-esophageal reflux disease without esophagitis Plan: Avoid the foods that causes that usually spicy foods, tomato products, juices, coffee, soda and foods that your sensitive to. After eating do not lie down, allow 3-4 hours before in lie down. And keep the head of bed above 30 degrees to avoid the acid from going up. (8) Interstitial lung disease: Code(s): J84.9 - Interstitial pulmonary disease, unspecified Plan: Received notes from Pulmonary and continued monitoring Plan History of Present Illness The patient is a 69-year-old male presenting for an annual wellness visit. He has a notable medical history of left leg DVT post-surgery in 2018, GERD, lumbar spinal stenosis, and impaired glucose tolerance. 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 The patient has been monitored for interstitial lung disease, presenting with a reduced diffusion capacity upon recent testing, likely requiring further evaluation and surveillance. He experienced a COVID-19 infection and received treatment with Laxovine. Musculoskeletal concerns include an L4-5 laminectomy performed in February 2023. Recent imaging studies from November 2023 confirm stability of severe multilevel disc degeneration, facet arthrosis, and severe canal stenosis, similar to 2022 findings. Cervical spine imaging depicts diffuse degenerative changes with moderate to severe stenosis and neural foraminal stenosis. Laboratory investigations revealed chronic anemia with normal platelets and slight leukopenia. Glucose levels were observed normal upon A1c testing, although baseline glucose was noted at 100 mg/dL. Liver and renal functions remain intact, with a notable mild B12 elevation. Health Maintenance - Recommended repetition of Pulmonary Function Test for ongoing Interstitial Lung Disease monitoring. - Advise obtaining a CT of the chest, ILD protocol, without contrast for respiratory assessment. - Regular exercise and maintaining activity advised for musculoskeletal and metabolic health. - Ongoing monitoring of B12 levels due to mild elevation. - Annual eye examinations due to glaucoma and history of cataract surgery. - Monitor for anemia progression through regular blood work. - Discussion about potential need for cervical and lumbar spinal monitoring based on symptomatic progression and stability. - Advised against the use of aspirin without food to prevent gastrointestinal complications. Social History - Engages in regular cycling and morning exercises; currently restricted by back pain. - Consumes alcohol occasionally, approximately once or twice weekly, typically beer or wine. - No current tobacco use; a history of occasional cigar smoking while fishing. - Cooks meals at home, avoids fast food, and reports a relatively healthy diet. - Interacts socially with family and friends, maintaining active relationships despite recent loss of his dog. - Reports regular bike riding; did not report any recent falls. - No use of recreational drugs reported. - individual with support from family and friends nearby. Review of Systems - Neurologic: Denies dizziness, syncope, or seizures. - Cardiovascular: Denies chest pain or discomfort, shortness of breath on exertion, or syncope. - Respiratory: Reports history of decreased diffusion capacity, denies current shortness of breath. - Gastrointestinal: Reports stable GERD symptoms, denies dysphagia or nausea. - Musculoskeletal: Reports pain in the lower back; reports back pain increases when sitting or lying down, relieved when standing. - Hematologic: Reports chronic anemia; denies easy bruising or history of recent infections. - Nocturia: Denies getting up at night to urinate; reports consistent bowel movements. Physical Exam General: Cooperative, healthy appearing, comfortable, no acute distress and well developed Orientation: Patient oriented x3 Limitations: No limitations Head: Normal to inspection Ears: Hearing grossly normal bilaterally, but noted bruising in the ear possibly from Q-tip use Nose: Normal external nose present Face and sinus: Normal facial exam Eyes: Appearance normal, both eyes and all related structures; pupils noted to be slightly asymmetrical with the right pupil larger than the left Neck: Normal visual inspection and Yes full ROM Respiratory: Normal respiratory effort and able to speak in complete sentences. Clear to auscultation bilaterally Cardiovascular: Regular rate and rhythm. Normal S1 and S2 GI: Normal to inspection. Soft to palpation and nontender Skin: No rashes or lesions noted Neuro: Patient oriented x3 Extremities: Normal to inspection, but patient reports neuropathy with lack of feeling on the bottom of feet; uses railing for stability on stairs but no need for cane or other assistive devices. Results - Labs: Anemia noted with hemoglobin at 11.8 g/dL, hematocrit at 35.1%; normal platelets and slight leukopenia. - Imaging/MRI (November 2023): Lumbar Spine - Severe multilevel disc degeneration, facet arthrosis, severe canal stenosis stable since 2022. Cervical Spine - Diffuse degenerative changes, moderate to severe canal stenosis, C5-C6 cord indentation. - Pulmonary Function Test: Noted decline in diffusion capacity by 30%. Plan I advised continued monitoring for interstitial lung disease and undifferentiated connective tissue disease requiring follow-up with pulmonary function studies and a CT scan of the chest. Emphasis on maintaining physical activity while managing lumbar and cervical spinal stenosis includes using pain relief strategies and consideration of muscle relaxants as needed; specifically, cyclobenzaprine is proposed. I recommended repeated Vitamin testing due to mild elevation and continue regular anemia evaluation with blood work. Incident COVID-19 infection has been resolved, with no current sequelae noted. No changes are recommended for current pharmacotherapy related to blood pressure and existing comorbidities. Preventive care including repeat vaccinations and screenings were reviewed and deemed current. Patient was informed and verbally consented to the use of an ambient scribe for clinic note documentation during this visit. Discussion Notes I discussed with the patient the necessity of ongoing monitoring for both interstitial lung disease and undifferentiated connective tissue disease. I outlined the benefits of performing pulmonary function tests and a CT scan according to the ILD protocol. For his spine issues, I suggested non-surgical management with supportive therapeutics like cyclobenzaprine for better pain control ahead of travel activities, such as his upcoming trips to [place] and [facility]. I stressed the importance of maintaining an active lifestyle while monitoring back symptoms to mitigate further flare-ups. I addressed the elevation of his Vitamin B12, recommending retesting, and explained the current anemia status does not warrant immediate intervention but requires regular monitoring. Although COVID-19 status is non-active, vigilance against infections remains crucial. I reiterated updating vaccinations and maintaining wellness protocols for overarching health needs. Patient Instructions - Schedule a pulmonary function test and a CT scan of the chest, ILD protocol, without contrast. - Continue regular cycling and morning exercise routines as tolerated; if back pain worsens, limit activities that exacerbate symptoms. - Wait to retest B12 levels and monitor dietary intake of supplements or fortified foods. - Continue antibiotic therapy for GERD and avoid spicy foods as necessary. - Monitor anemia status with regular blood work as advised. - Use [id number] topical analgesics or cyclobenzaprine if needed for neck or back pain management under professional guidance. - Awareness of potential side effects of [id number] medications like aspirin; avoid use on an empty stomach. - Adherence to a healthy diet, minimizing alcohol consumption to no more than two drinks weekly. - Stay updated with all vaccinations and perform preventive health screenings as recommended. - Store glaucoma medications securely and adhere to prescribed use. - Contact healthcare for any sudden changes in health, including increased shortness of breath or changes in musculoskeletal pain. Orders: Orders Comprehensive Met. Panel Today R73.02 - Impaired glucose tolerance (oral) Complete Blood Count Auto Diff Today D64.9 - Anemia, unspecified Ferritin Today D64.9 - Anemia, unspecified IRON PROFILE Today D64.9 - Anemia, unspecified Vitamin B12 and Folate Today D64.9 - Anemia, unspecified Erythrocyte Sedimentation Rate Today M35.9 - Systemic involvement of connective tissue, unspecified Hemoglobin A1c Today R73.02 - Impaired glucose tolerance (oral) Reticulocyte Count Today D64.9 - Anemia, unspecified Lipid Panel Today E78.00 - Pure hypercholesterolemia, unspecified, M35.9 - Systemic involvement of connective tissue, unspecified Magnesium Today M35.9 - Systemic involvement of connective tissue, unspecified C Reactive Protein Today M35.9 - Systemic involvement of connective tissue, unspecified Medications: New cyclobenzaprine 10 mg PO TID PRN 30 tabs 0RF muscle spasm M48.062 - Spinal stenosis, lumbar region with neurogenic claudication Quality Reporting (2019) Depression/Bipolar (159/160/161/177) PHQ-9: Total score: 0 Coding Level of Care Code Medicare Subsequent (G0439) Diagnoses Medicare annual wellness visit, subsequent Z00.00 Undifferentiated connective tissue disease M35.9 Impaired glucose tolerance R73.02 Spinal stenosis of lumbar region with neurogenic claudication M48.062 Neurogenic claudication status: with neurogenic claudication Degenerative disc disease, cervical M50.30 Anemia D64.9 GERD (gastroesophageal reflux disease) K21.9 Interstitial lung disease J84.9
[2024-12-07 09:23] VITALS: BP 136/68; PULSE 90; TEMP 36.2; O2SAT 98; BMI 23.8
--- OUTSIDE RECORDS SUMMARY | 2024-12-07 09:55 | XMS_ITS | Clinical Summary ---
Author Organization [facility] Address [address] [place] [address] Care Team Providers Care Hand Embroiderer Name Role Phone Boni Man Primary Care Provider Allergies Active Allergy Reactions Criticality Noted Date Comments Enoxaparin Blood pressure, high 12/25/2022 Medications cyanocobalamin, vitamin B-12, 3,000 mcg capsule Take 1,000 mcg by mouth. 02/06/2023 Active Active Problems Problem Noted Date Diagnosed Date Lumbosacral radiculopathy 10/20/2023 Cervical radiculopathy 10/20/2023 Bilateral carpal tunnel syndrome 10/20/2023 Social History Tobacco Use Types Packs/Day Years Used Date Smoking Tobacco: Never Smokeless Tobacco: Never Alcohol Use Standard Drinks/Week Comments Yes 0 (1 standard drink = 0.6 oz pur e alcohol) Sex and Gender Information Value Date Recorded Sex Assigned at Male 11/11/2022 10:38 AM EST Legal Sex Male 10:08 AM EST Gender Identity Male 11/11/2022 10:38 AM EST Sexual Orientation Straight 11/11/2022 10 :38 AM EST Last Filed Vital Signs Vital Sign Reading Time Taken Comments Blood Pressure 135/86 01/07/2024 1:06 PM EDT Pulse 86 01/07/2024 1:06 PM EDT Temperature 36.7 ??C (98 ??F) 01/07/2024 1:06 PM EDT Respiratory Rate 18 01/07/2024 1:06 PM EDT Oxygen Saturation - - Inhaled Oxygen Concentration - - Weight 79.4 kg (175 lb) 01/07/2024 1:06 PM EDT Height 180.3 cm (5' 11 ) 01/07/2024 1:06 PM EDT Body Mass Index 24.41 01/07/2024 1:06 PM EDT Plan of Treatment Health Maintenance Due Date Last Done Comments Cologuard 1955 Colon Cancer Screening 1955 Colonoscopy 1955 FOBT / Fit Test 1955 Hepatitis C Screening 1955 Sigmoidoscopy 1955 Medicare AWV 1956 COVID-19 Vaccine ( season) 2024 07/07/2023, 07/07/2022, 06/26/2021, Additional history exists Influenza Vaccine (#1) 2024 , 07/07/2023, 07/07/2022, Additional history exists Alcohol/Substance Use Screening 09/21/2024 Depression Screening and Follow-Up 09/21/2024 Fall Risk Screening 09/21/2024 Health Care Proxy Review 09/21/2024 Social Drivers of Health Annual Screening 09/21/2024 RSV Vaccine (60+ years old and patients) (1 - 1-dose 75+ series) 2028 DTaP,Tdap,and Td Vaccines (3 - Td or Tdap) 12/08/2033 12/09/2023, 12/29/2013 Tobacco Screening 09/21/2042 01/10/2024 Zoster Vaccines Completed 08/02/2021, 03/31/2019 Pneumococcal Vaccine: 50+ Years Completed 08/06/2022, 07/11/2021 Hepatitis B Vaccines Aged Out No long er eligible based on patient's age to complete this topic Insurance MEDICARE [facility] SUPP Care Teams Hand Embroiderer Relationship Specialty Start Date End Date Boni Man [address] [place] [address] [place] [address] PCP - General Internal Medicine 11/11/22
--- OUTSIDE RECORDS SUMMARY | 2024-12-07 09:55 | XMS_ITS ---
Author Organization [facility] Address [address] [place] [phone] Care Team Providers Care Interrelated Special Education Teacher Name Role Phone Boni Man MD Primary Care Provider Dwaine Peerz Jr [phone] REASON FOR VISIT screening Encounters Encounter Location Date Provider Diagnosis [facility] Outpatient [address] [place] [phone] 08/28/2023 Dwaine Garcia Jr Encounter for screening colonoscopy Z12.11 and Colon polyps K63.5 Assessments Encounter Date Diagnosis (ICD Code) Assessment Notes Treatment Notes Treatment Clinical Notes Section Notes 08/28/2023 Encounter for screening colonoscopy (ICD-10 - Z12.11) 08/28/2023 Colon polyps (ICD-10 - K63.5) Plan Of Treatment No Information Progress Notes * CIELO MACKEY CDOB: (69 yo M)Acc No.[id number]:08/28/2023 COLON WITH MAC Patient:?CIELO MACKEY Provider:?Dwaine Garcia MD :1955???Age:68 Y???Sex:Male Michael e:08/28/2023 Address:[address] [place], [place] [id number] Pcp:Boni Man MD Subjective: * Chief Complaints: * ???1. Screening. * Medical History:? Objective: * Vitals:? Assessment: * Assessment: 1.?Encounter for screening c olonoscopy - Z12.11 (Primary)???2.?Colon polyps - K63.5??? Plan: * Treatment: * Procedure Codes:?26686 LESIO N REMOVAL COLONOSCOPY * * The named appointment provid er may or may not be the originator of this progress note, and it is not deemed complete until electronically signed by the appointment provider. Sign off status: Pending * Provider:?Dwaine Garcia MD Date:?1 10/29/2022 Generated for Radha lucas/Lynn/eTransmitting on:?12/07/2024 09:55 AM EDT
--- OUTSIDE RECORDS SUMMARY | 2024-12-07 09:55 | XMS_ITS | Referral Summary ---
Author Organization [facility] Address [address] [place] [address] Care Team Providers Care Manager Integration Name Role Phone Boni Man Primary Care Provider [phone] Allergies Active Allergy Reactions Criticality Noted Date [...] 01/07/2024 1:06 PM EDT Plan of Treatment Not on file Insurance MEDICARE [facility] Care Teams Manager Integration Relationship Specialty Start Date End Date Boni Man [address] [place] [address] [place] [address] PCP - General Internal Medicine 11/11/22
--- OUTSIDE RECORDS SUMMARY | 2024-12-07 09:55 | XMS_ITS | Patient Health Record ---
Author Organization [facility] Address [address] [place] [address] Care Team Providers Care Manager Mechanical Maintenance Name Role Phone Boni Man MD Primary Care Provider Dwaine Perez Jr Unavailable Allergies Allergen (clinical drug ingredient) Drug/Non Drug Allergy documented on EMR Reaction Allergy Type Onset Date Status enoxaparin Enoxaparin Unknown Drug Allergy Activ e Reason For Referral No Information Medications Medication SIG (Take, Route, Frequency, Duration) Notes Start Date End Date Status MiraLax (colon prep) 17 GM/SCOOP mixed with Gatorade or Crystal Light Orally begin at 5:00 p.m. the day before the procedure for 1 day 08/10/2023 Active Vitamin B 12 100 MCG as directed Orally Active Meloxicam 15 MG 1 tablet Orally Once a day for 30 day(s) Active Immunizations Vaccine Route Administration Date Status Comme nts Influenza Unknown 08/13/2018 Administered Influenza Unknown 07/22/2023 Administered Social History Tobacco Use: Social History Observation Description Date Details (start date - stop date) Never Smoker NA - NA Tobacco Use/Smoking Question Answer Notes Patient is a nonsmoker Alcohol Screen Question Answer Notes Did you have a drink contain ing alcohol in the past year? Yes How often did you have a dri nk containing alcohol in the past year? 4 or more times a week (4 points) How many drinks did you have on a typical day when you were drinking in the past year? 1 or 2 drinks (0 point) How often did you have 6 or more drinks on one occasion in the past year? Never (0 point) Points 4 Interpretation Positive Problems Problem Type SNOMED Code ICD Code Onset Dates Problem Status W/U Status Risk Notes Problem 281749204 Colon cancer screening (Z12.11) Active confirmed Problem 422754216 Encounter for long-term (current) use of NSAIDs (Z79.1) Active confirmed Problem 421002723 Anemia, unspecified type (D64.9) Active confirmed Problem 26706193 Hypertension, unspecified type (I10) Active confirmed Plan Of Treatment Future Test Test Name Order Date COLONOSCOPY 06/15/2019 COLONOSCOPY 08/10/2023 Insurance Providers Payer Name Payer Address Payer Phone Subscriber Number Group Number Insured Name Patient Relationship to Insured Coverage Start Date Coverage End Date MEDICARE OF [place] [address] [place] [address] [id number] CIELO SILVA Self - patient is the insured [employer] ATT[employer] CLAIMS [address] [place] [address] [phone] [id number] CIELO SILVA Self - patient is the insured Medical (General) History Medical History History ICD Code anemia spinal stenosis epigastric hernia osteoarthritis of the hips cervical radiculitus lower extremity sensory motor poly neuro jaime epigastic hernia right inguinal hernia Surgical History Surgery Date(Month/Year) spinal decompression 03/11/2018 left knee arthroscopy 10/04/2018 left hip replacement DVT lower leg 07/05 right hip replacement 11/29/2019 bone marrow biopsy and aspiration 020 carpel tunnel release/right hand 000 cataract right eye 01/08/23 left cataract eye surgery 01/20/23 spinal decompression 03/16/2023
--- OUTSIDE RECORDS SUMMARY | 2024-12-07 09:55 | XMS_ITS ---
Author Organization [facility] Address [address] [place] [phone] Care Team Providers Care Camera Storage Clerk Name Role Phone Po Boni AL Primary Care Provider Dwaine Perez Jr REASON FOR VISIT pathology Encounters Encounter Location Date Provider Diagnosis [facility] [address] [place] [phone] 09/09/2023 Dwaine Garcia Jr Plan Of Treatment No Information Progress Notes * CIELO MACKEY CDOB: (68 yo M)Acc No.[id number]:09/09/2023 Patient:?CIELO MACKEY :1955???Age:68 Y???Sex:Male Address:[address] [place] [address], [address] * true * Date:? Generated for Kerii lance/Lynn/eTransmitting on:?12/07/2024 09:55 AM EDT
--- OUTSIDE RECORDS SUMMARY | 2024-12-07 09:56 | XMS_ITS ---
Author Organization [facility] Address [address] [place] [address] Care Team Providers Care Service Advisor Name Role Phone Po Boni AL Primary Care Provider Unavailgila e Dwaine Garcia Jr Unavailable [phone] Allergies Allergen (clinical drug ingredient) Drug/Non Drug Allergy documented on EMR Reaction Allergy Type Onset Date Status enoxaparin Enoxaparin Unknown Drug Allergy Activ e REASON FOR VISIT Patient presents today for a colon screening Medications Medication SIG (Take, Route, Frequency, Duration) Notes Start Date End Date Status Vitamin B 12 100 MCG as directed Orally Active Meloxicam 15 MG 1 tablet Orally Once a day for 30 day(s) Active MiraLax (colon prep) 17 GM/SCOOP mixed with Gatorade or Crystal Light Orally begin at 5:00 p.m. the day before the procedure for 1 day 08/10/2023 Active Social History Tobacco Use: Social History Observation [...] Problem Status W/U Status Risk Notes Problem 145093470 Encounter for long-term (current) use of NSAIDs (Z79.1) Active confirmed Vital Signs Temperature 98.2 degrees Fahrenheit 08/10/20 23 Blood pressure systolic 000 mm Hg 08/10/20 23 Blood pressure diastolic 00 mm Hg 023 Height 71 in 08/10/2023 Weight 170 lb 4 oz lbs 08/10/2023 BMI 23.74 kg/m2 08/10/2023 Encounters Encounter Location Date Provider Diagnosis [facility] [address] [place] [address] 08/10/2023 Dwaine Garcia Jr Encounter for long-term (current) use of NSAIDs Z79.1 and Colon cancer screening Z12.11 Assessments Encounter Date Diagnosis (ICD Code) Assessment Notes Treatment Notes Treatment Clinical Notes Section Notes 08/10/2023 Encounter for long-term (current) use of NSAIDs (ICD-10 - Z79.1) Colonoscopy discharge material was printed We discussed colonoscopy today. We discussed risks and benefits of the procedure today. He understands these and agrees to proceed. This will be scheduled at his convenience. He is advised to stop meloxicam one week before the procedure. 08/10/2023 Colon cancer screening (ICD-10 - Z12.11) We discussed colonoscopy today. We discussed risks and benefits of the procedure today. He understands these and agrees to proceed. This will be scheduled at his convenience. He is advised to stop meloxicam one week before the procedure. Plan Of Treatment Medication Medication Name Sig Start Date Stop Date Notes MiraLax (colon prep) 17 GM/SCOOP mixed with Gatorade or Crystal Light Orally begin at 5:00 p.m. the day before the procedure for 1 day 08/10/2023 Treatment Notes Assessment Notes Encounter for long-term (cur rent) use of NSAIDs Colonoscopy discharge material was print ed Future Test Test Name Order Date COLONOSCOPY 08/10/2023 Next Appt Details Follow Up: 1 Year, Reason: Progress Notes * CIELO MACKEY CDOB: (68 yo M)Acc No.[id number]:08/10/2023 Progress Notes Patient:?CIELO MACKEY Provider:?Dwaine Garcia MD :1955???Age:68 Y???Sex:Male Michael e:08/10/2023 Address:[address] [place] [address], [id number] Pcp:Boni Man MD Subjective: * Chief Complaints: * ???1. Patient presents today for a colon screening. * HPI: ???New symptom(s):? Cielo is a pleasant 68-year-old man seen today for his preoperative colonoscopy visit. He has no complaints of rectal bleeding or change in his bowel habits. He has not undergone previous colonoscopy. * ROS:?General/Constitutional:?Change in appetite?denies.?Fatigue?denies.?ENT:?Patient denies?difficulty swallowing.?Respiratory:?Patient denies?shortness of breath.?Cardiovascular:?Patient denies?chest pain.?Gastrointestinal:?Comments?See HPI for details.?Genitourinary:?Difficulty urinating?denies.?Incontinence?denies.?Musculoskeletal:?Patient denies?muscle aches.?Skin:?Patient denies?pruritis.?Neurologic:?Patient denies?low back pain.?Psychiatric:?Patient denies?mental or physical abuse.? * Medical History:?Anemia, Spi nal stenosis, Epigastric hernia, Osteoarthritis of the hips, Cervical radiculitus, Lower extremity sensory motor poly neuropathy, Epigastic hernia, Right inguinal hernia. * Surgical History:?spinal dec ompression 03/11/2018, left knee arthroscopy 10/04/2018, left hip replacement DVT lower leg 07/05/2019, right hip replacement 11/29/2019, bone marrow biopsy and aspiration 06/15/2020, carpel tunnel release/right hand 08/31/2000, cataract right eye 01/08/23, left cataract eye surgery 01/20/23, spinal decompression 03/16/2023. * Family History:?Father: dece ased.?Mother: .? No family history of colon cancer or liver cancer. * Social History:?Tobacco Use:?Tobacco Use/Smoking?Patient is a?nonsmoker.?Drugs/Alcohol:?Alcohol Screen?Did you have a drink containing alcohol in the past year??Yes,?How often did you have a drink containing alcohol in the past year??4 or more times a week (4 points),?How many drinks did you have on a typical day when you were drinking in the past year??1 or 2 drinks (0 point),?How often did you have 6 or more drinks on one occasion in the past year??Never (0 point),?Points?4,?Interpretation?Positive.?Miscellaneous:?Marital status: . Occupation: retired. * Medications:?Taking Vitamin B 12 100 MCG Lozenge as directed Orally , Taking Meloxicam 15 MG Tablet 1 tablet Orally Once a day, Discontinued Glucosamine Sulfate 1500 MG Packet as directed Orally twice a day, Discontinued Cyanocobalamin 3000 MCG Capsule as directed Orally Once a day, Discontinued Cholecalciferol 4000 UNIT Tablet as directed Orally Once a day, Discontinued MiraLax (colon prep) 8.3 ounce ((238) grams mixed with Gatorade or Crystal Light orally begin at 5:00 p.m. the day before the procedure, Medication List reviewed and reconciled with the patient * Allergies:?Enoxaparin. Objective: * Vitals:?Wt: 170 lb 4 oz, Ht: 71 in, BMI:23.74 Index, BP: 000/00 mm Hg, Temp: 98.2. * Examination: ???General Examination: ?GENERAL APPEARANCE:?in no acute distress.?HEAD:?normocephalic.?EYES:?sclera non-icteric.?ORAL CAVITY:?mucosa moist.?NECK/THYROID:?no lymphadenopathy.?SKIN:?anicteric.?HEART:?S1, S2 normal, no murmurs.?LUNGS:?clear to auscultation bilaterally.?CHEST:?normal shape and expansion.?ABDOMEN:?soft, nontender, nondistended, bowel sounds present, no organomegaly .?EXTREMITIES:?no clubbing, cyanosis, or edema.?PSYCH:?cognitive function intact.? Assessment: * Assessment: 1.?Encounter for long-term ( current) use of NSAIDs - Z79.1 (Primary)?2.?Colon cancer screening - Z12.11? We discussed colonoscopy tod blanca. We discussed risks and benefits of the procedure today. He understands these and agrees to proceed. This will be scheduled at his convenience. He is advised to stop meloxicam one week before the procedure. Plan: * Treatment: 2.?Colon cancer screening? Start MiraLax (colon prep) Powder, 17 GM/SCOOP, mixed with Gatorade or Crystal Light, Orally, begin at 5:00 p.m. the day before the procedure, 1 day, 8.3 Ounce, Refills 0.?Procedure: COLONOSCOPY (Ordered for 08/10/2023) * Procedure Codes:?3017F COLOR ECTAL CA SCREEN DOC REV, G9903 Pt scrn tbco id as non user, G9745 DOC RSN FOR NOT SCREEN/REC F/U HBP * Follow Up:?1 Year * * Sign off status: Completed true * Provider:?Dwaine Garcia MD Date:?1 10/10/2022 Generated for Radha lucas/Lynn/eTransmitting on:?12/07/2024 09:55 AM EDT History and Physical Notes * HPI (History of Present Illness) Category Sub-Category Detail Notes Category Not es New symptom(s) Cielo is a pleasant 68-year-old man seen today for his preoperative colonoscopy visit. He has no complaints of rectal bleeding or change in his bowel habits. He has not undergone previous colonoscopy. Examination Category Sub-Category Detail Notes Category Not es General Examination GENERAL APPEARANCE: in no acute di stress HEAD: normocephalic EYES: sclera non-icteric NECK/THYROID: no lymphadenopathy HEART: S1, S2 normal, no mu rmurs CHEST: normal shape and exp ansion LUNGS: clear to auscultatio n bilaterally ABDOMEN: soft, nontender, non distended, bowel sounds present, no organomegaly SKIN: anicteric EXTREMITIES: no clubbing, cyanosi s, or edema PSYCH: cognitive function i ntact ORAL CAVITY: mucosa moist
== END 2024-12-07 10:04 | disposition home or self-care (01) ==
LOC: HO.HMCH 09:07
PROVIDERS: PCP Internal Medicine; Visit Provider Internal Medicine
DX: Z00.00 Encounter for general adult medical examination without abnormal findings (principal); M35.9 Systemic involvement of connective tissue, unspecified; J84.9 Interstitial pulmonary disease, unspecified; R73.02 Impaired glucose tolerance (oral); M48.062 Spinal stenosis, lumbar region with neurogenic claudication; D64.9 Anemia, unspecified; M50.30 Other cervical disc degeneration, unspecified cervical region; K21.9 Gastro-esophageal reflux disease without esophagitis

== ENCOUNTER → 2024-12-07 09:06 | Outpatient (BNVA) | payer MEDICARE, SELFPAY | PROVIDERS: PCP Internal Medicine; Visit Provider Internal Medicine ==

== ENCOUNTER 2025-08-16 14:48 | Outpatient (AMB) | payer MEDICARE, SELFPAY ==
--- NOTE | 2025-08-16 15:04 | AM.OFFWIN_ITS ---
Intake Vital Signs 08/16/25 15:09 Height 5 ft 11 in Weight 177 lb BMI 24.7 BP 110/42 L Blood Pressure Location Lt brachial Position Sitting Respiration 16 Pulse 53 Pulse Source Pulse Oximeter Temp 98.6 F Temp Source Oral Pulse Oximetry (%) 99 Oxygen Delivery Method Room Air Intake Visit Reasons: EP High BP/ dizziness Intake Note: pt presents with feeling winded while going up the stairs and lightheadedness starting yesterday with throbbing headache beginning today. pt denies fevers at home. pt reports pshx of C5-C6 nerve compression on 08/07/25 at [facility] and also reports anemia. RT ankle swelling noted, skin appearing more yellow (jaundice like) than his normal da silva appearing skin Patient Tobacco Use Status: Never used Tobacco Allergies enoxaparin Allergy (Mild, Verified 08/16/25 15:12) Hypertension, burning on injection Do you need a note to return to daycare/school/sports/work: No HPI HPI Comments History of Present Illness Details History of Present Illness - The patient is a 70 year old individua l presenting with dizziness, which is described as lightheadedness and dizziness. - The patient's blood pressure and heart rate were high this morning, but a subsequent check by a retired nurse friend revealed a heart rate of claudine roximately 40 bpm. - The lightheadedness is exacerbated by activity, such as walking, and improves with sitting. - The patient has a known history of chr onic anemia for many years and has previously undergone a bone marrow biopsy. - The patient takes vitamin B12 but is n ot on any iron supplementation. 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 - The patient is recent post-operative w hich is causing nerve-related issues. - There is also persistent swelling at a 10-day-old IV site. - For post-operative pain, the patient t ook Tylenol for a few days and did not use the prescribed oxycodone. - The patient reports experiencing some shortness of breath when going up stairs. - The patient denies chest pain, nausea, vomiting blood, rectal bleeding, or easy bruising. - The patient reports dark urine despite increased fluid intake, suggesting some dehydration. - A history of arthritis is noted, for w raheem the patient takes meloxicam as needed, but has not taken it in the last three weeks. - He denies chest pain or syncope. Physical Exam General: Cooperative, healthy appearing, comfortable, no acute distress and well developed Orientation: Patient oriented x3 Limitations: No limitations Head: Normal to inspection Eyes: Appearance normal, both eyes and all related structures. PERRLA, EOMI. No nystagmus noted. Pallor noted bilaterally. Neck: Normal visual inspection and Yes full ROM. No carotid bruits noted. Stephens ge on the anterior neck. Respiratory: Normal respiratory effort and able to speak in complete sentences. Clear to auscultation bilaterally. No w/r/r noted. Cardiovascular: Bradycardic, regular rhythm. Normal S1 and S2. No m/r/g noted. GI: Normal to inspection. Soft to palpation and nontender Skin: No rashes or lesions noted Neuro: Patient oriented x3 Extremities: Normal to inspection. No edema noted. Patient was informed and verbally consented to the use of an ambient scribe for clinic note documentation during this visit. [facility] Medical History Inguinal hernia Epigastric pain Neuropathy Cervical radiculitis Epigastric hernia Spinal stenosis CTS (carpal tunnel syndrome) GERD (gastroesophageal reflux disease) Anemia Left leg DVT Surgical History History of lumbar laminectomy for spinal cord decompression History of carpal tunnel release History of bone marrow biopsy Status post left hip replacement History of cataract surgery S/P left knee arthroscopy History of laminectomy Hip osteoarthritis Social History (Updated 12/07/24 @ 09:43 by Boni Man MD) Housing: House Alcohol intake: current Alcohol intake frequency: 0-2 drinks per day Alcohol type: beer Comment: 2 x a week 1-2 drinks Patient Tobacco Use Status: Never used Tobacco e-Cigarette/Vaping Use: Never Used Second Hand Smoke Exposure: No service: No Current occupational status: retired Cognitive needs: Yes (cane) Hearing needs: No Vision needs: No Review of Systems Const All systems reviewed & are unremarkable except as noted in HPI and below Physical Exam Vital Signs: Last Vital Signs Temp 98.6 F 08/16/25 15:09 Pulse 53 08/16/25 15:09 Resp 16 08/16/25 15:09 BP 110/42 L 08/16/25 15:09 Pulse Ox 99 08/16/25 15:09 Oxygen Delivery Method Room Air 08/16/25 15:09 BMI result Body Mass Index 24.7 Results Reviewed Results Reviewed: will review the EKG in the office and compare with olds Assessment & Plan Assessment & Plan (1) Dizziness: Code(s): R42 - Dizziness and giddiness (2) Lightheadedness: Code(s): R42 - Dizziness and giddiness Plan Most likely symptomatic anemia vs cardiac vs dehydration plan 1. Dizziness - The presenting symptom of lightheadedness is attributed primarily to the patient's chronic anemia, which was likely exacerbated by a recent surgery. - Dehydration is also considered potential contributing factors. - The absence of chest pain, nausea, and vomiting provides some reassurance against a more acute cardiac or systemic cause. - The patient was advised to significantly increase fluid intake to address dehydration. 2. Bradycardia - An EKG confirmed a heart rate of 42 bpm. 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 - Given the chronic and stable nature of these findings, no acute cardiac intervention is planned at this time. 3. Anemia - The patient has a known history of chronic anemia for years, which is consider ed the most likely cause of the lightheadedness, weakness, and shortness of breath. - Physical exam finding of significant conjunctival pallor supports this assessment. - Lab results will be reviewed to assess the current severity of the anemia. 4. Postoperative Status - The patient has an upcoming follow-up appointment with the surgeon on Thursday, where these concerns can be addressed. - Advised the ER if he felt dizzy, weak, CP, SOB, etc - needs to f/u with PCP next week - Pt is aware walk in is open Thursday if he needs to be seen again Coding Level of Care Code Est Pt Level 4 (93085) Diagnoses Dizziness R42 Lightheadedness R42
[2025-08-16 15:09] VITALS: BP 110/42; PULSE 53; RESP 16; TEMP 37; O2SAT 99; BMI 24.7
--- OUTSIDE RECORDS SUMMARY | 2025-08-16 17:28 | XMS_ITS | Clinical Summary ---
Author Organization [facility] Address [address] [place] [address] Care Team Providers Care Packaging Design Engineer Name Role Phone Boni Man Primary Care Provider [phone] Allergies Active Allergy Reactions Criticality Noted Date [...] 86 01/07/2024 1:06 PM EDT Temperature 36.7 C (98 F) 01/07/2024 1:06 PM EDT Respiratory Rate 18 [...] Screening 1955 Sigmoidoscopy 1955 Medicare AWV 1956 Alcohol/Substance Use Screening 09/21/2024 Depression Screening and Follow-Up 09/21/2024 Fall Risk Screening 09/21/2024 Health Care Proxy Review 09/21/2024 Social Drivers of Health Annual Screening 09/21/2024 Influenza Vaccine (#1) 2025 , 07/07/2023, 07/07/2022, Additional history exists COVID-19 Vaccine (2024- season) 2025 07/07/2023, 07/07/2022, 06/26/2021, Additional history exists RSV Vaccine (60+ years old and patients) (1 - 1-dose 75+ series) 2028 DTaP,Tdap,and Td Vaccines (3 - Td or Tdap) 12/08/2033 12/09/2023, 12/29/2013 Tobacco Screening 09/21/2042 01/10/2024 Zoster Vaccines Completed 08/02/2021, 03/31/2019 Pneumococcal Vaccine: 50+ Years Completed 08/06/2022, 07/11/2021 Hepatitis B Vaccines Aged Out No long er eligible based on patient's age to complete this topic Insurance MEDICARE [facility] Care Teams Packaging Design Engineer Relationship Specialty Start Date End Date Boni Man [address] [place] [address] [place] [address] PCP - General Internal Medicine 11/11/22
== END 2025-08-16 16:36 | disposition home or self-care (01) ==
PROVIDERS: PCP Internal Medicine; Visit Provider Physician Assistant Medical
DX: R42 Dizziness and giddiness (principal)

== ENCOUNTER → 2025-08-16 14:48 | Outpatient (BNVA) | payer MEDICARE, SELFPAY | PROVIDERS: PCP Internal Medicine; Visit Provider Physician Assistant Medical | DX: R42 Dizziness and giddiness (principal) | CPT/HCPCS: 99212 ==

== ENCOUNTER 2025-08-19 11:42 | Emergency (ER) | payer MEDICARE, SELFPAY ==
--- OUTSIDE RECORDS SUMMARY | 2025-08-16 23:59 | XMS_ITS | Continuity of Care Document ---
Author Organization [facility] Address [address] [place] [address]- Care Team Providers Care Provider Relations Manager Name Role Phone Po Boni AL Primary Care Physician [place] [facility] [place]17[place] - 08/16/25 [facility] [address], [place] [address] Attending Physician: AdmSouth bazzi Admitting Physician: Admtr, ArSiomara Referring Physician: Admtr, Ar8 Encounter Type: Triage Allergies, Adverse Reactions, Alerts Substance Criticality Severity Reaction Reaction Severity Status enoxaparin mcconnell tachycardia hypertension Active Immunizations Given and Recorded Vaccine Date Status Refusal Reason zoster vaccine, inactivated 08/02/21 Recorded zoster vaccine, inactivated 03/31/19 Recorded pneumococcal 13-valent vaccine 07/11/21 Recorded influenza virus vaccine, inactivated 06/26/21 Yves rded influenza virus vaccine, inactivated 07/20/20 Yves rded influenza virus vaccine, inactivated 08/24/18 Yves rded SARS-CoV-2 (COVID-19) mRNA BNT-162b2 vac 06/26/21 Recorded SARS-CoV-2 (COVID-19) mRNA BNT-162b2 vac 11/28/20 Given Hepatitis A Adult Vaccine 11/23/14 Given Hepatitis A Adult Vaccine 1 12/29/13 Given Typhoid Vaccine, Inactivated 12/29/13 Given tetanus/diphtheria/pertussis, acel(Tdap) 12/29/13 Given 1Result Comment: [12/29/2013] hep A #1 Medications meloxicam 15 mg oral tablet See Instructions, TAKE 1 TABLET BY MOUTH NEEDED FOR PAIN Take with food, # 30 tablet, 2 Refills,Maintenance, 05/04/25 8:53:00 AM EDT, [id number], 181.5, cm, 12/07/24 7:43:00 EDT, Height Start Date: 05/04/25 Status: Ordered Medication Dispense Status: Completed Quantity: 30.0 Unit: tablet Total Allowed Fills: 3 Fills Dispensed: 0 Vitamin B-12 1000 mcg oral tablet 1,000 mcg, 1, tablet, By Mouth, Daily, Refills 0, Maintenance, 02/06/23 10:59:00 AM EDT, Partial fill upon patient request if the prescription is for a schedule II opioid drug. Start Date: 02/06/23 Status: Ordered Medication Dispense Status: Completed Total Allowed Fills: 1 Fills Dispensed: 0 Problem List Condition Confirmation Course Effective Dates Status H ealth Status Informant Cervical radiculitis Confirmed Active Disorder of connective tissue Confirmed Active Eosinophilia Confirmed Active Epigastric hernia Confirmed Active History of deep vein thrombosis Confirmed Active Interstitial lung disease Confirmed Active Macrocytic anemia Confirmed Active Osteoarthritis of left hip Confirmed Active Paruresis Confirmed Active Cervical spinal stenosis Confirmed Active Social History Social History Type Response Tobacco Other: Lifetime non- smoker. Sex Male Sex Representation Male (finding) Patient Care team information Care Team Personnel Name: Keyshawn Elmore RN Position: [facility] RN Member Role: Primary Care Nurse Name: Tegan Prakash RN Position: [facility] RN Member Role: Primary Care Nurse Name: Boni Man MD Position: Reference Physician Member Role: PCP Address: [address] [place] [address] Telecom: Name: Amanda Ospina RN Position: S RN Member Role: Primary Care Nurse Care Team Related Persons Name: SHERRY GUADALUPE Name: ANGELINA MACKEY Name: SHERRY MACKEY Insurance Providers Guarantor name: CIELO KEY Health Plan Information #: 1 Payer: MEDICARE B Payer Identifier: FABIO Member Number: [id number] Group Number: [id number] Subscriber Identifier: FABIO Relationship to Subscriber: self Coverage Type: NA Coverage Verification Date: NA Telecom: NA Address: Health Plan Information #: 2 Payer: MEDEX SECONDARY ONLY Payer Identifier: FABIO Member Number: [id number] Group Number: [id number] Subscriber Identifier: NA Relationship to Subscriber: self Coverage Type: Medicare Other Coverage Verification Date: FABIO Telecom: FABIO Address: NA
--- NOTE | ~2025-08-19 | XR_ITS ---
CLINICAL HISTORY: SOB 1 view chest x-ray Comparison: None provided Findings: There is prominence of interstitial markings within the bilateral lower lungs. There is no consolidation. Normal size heart. No acute fracture. IMPRESSION: Prominence of interstitial markings within the lower lungs may be chronic or secondary to interstitial infiltrates. This document has been electronically signed by: Ning Beavers MD on 08/19/2025 14:00:00
--- NOTE | 2025-08-19 11:44 | ECG_ITS ---
Test Reason : LOW HR Blood Pressure : */* mmHG Vent. Rate : 41 BPM Atrial Rate : 110 BPM P-R Int : * ms QRS Dur : 138 ms QT Int : 550 ms P-R-T Axes : 77 -69 9 degrees QTcB Int : 453 ms Sinus tachycardia second degree AV nishant, cannot state mobitz 1 vs 2. Right bundle branch block Left anterior fascicular block Bifascicular block Abnormal ECG When compared with ECG of 03-Dec-2022 06:16, Sinus rhythm is now second degree AV block Vent. rate has decreased by 32 bpm Referred By: Nazia Mayes Electronically Signed By: LETY [place]
[2025-08-19 11:56] VITALS: BP 161/35; PULSE 35; RESP 16; TEMP 36.8; O2SAT 98; BMI 22.6
--- NOTE | 2025-08-19 12:16 | ED.GENADULT ---
HPI - General Adult General Chief complaint: Dyspnea Stated complaint: heart rate dropping? Time Seen by Provider: 08/19/25 12:06 Source: patient Mode of arrival: ambulatory Limitations: no limitations History of Present Illness HPI narrative: This is a 70 years old the patient with no past medical history presented to the emergency department with a chief complaint of shortness of breath weakness generalized malaise for about 3 days he noted that he has arthritis he has been low. He denies any past medical history he denies any medication including beta shane or calcium channel shane no syncope Onset (ago): day(s) (2) Radiation: non-radiation Severity: mild Relieving factors: none Exacerbating factors: none Associated symptoms: denies other symptoms Related Data Home Medications ?Medication ?Instructions ?Recorded ?Confirmed cyanocobalamin (vitamin B-12) 3,000 mcg PO DAILY 07/28/23 12/07/24 3,000 mcg capsule meloxicam 15 mg tablet 15 mg PO DAILY PRN 08/16/25 Allergies Allergy/AdvReac Type Severity Reaction Status Date / Time enoxaparin Allergy Mild Hypertension, Verified 08/19/25 12:00 burning on injection Review of Systems Constitutional: Constitutional: Reports no additional constitutional complaints PMFSH Past Medical History Medical History Inguinal hernia Epigastric pain Neuropathy Cervical radiculitis Epigastric hernia Spinal stenosis CTS (carpal tunnel syndrome) GERD (gastroesophageal reflux disease) Anemia Left leg DVT Surgical History History of lumbar laminectomy for spinal cord decompression History of carpal tunnel release History of bone marrow biopsy Status post left hip replacement History of cataract surgery S/P left knee arthroscopy History of laminectomy Hip osteoarthritis Social History Social History (Updated 12/07/24 @ 09:43 by Boni Man MD) Housing: House Alcohol intake: current Alcohol intake frequency: 0-2 drinks per day Alcohol type: beer Comment: 2 x a week 1-2 drinks Patient Tobacco Use Status: Never used Tobacco e-Cigarette/Vaping Use: Never Used Second Hand Smoke Exposure: No Advance Directives: No Advance Directives Information Provided: Yes Do you have a plan to hurt others: No Plan service: No Current occupational status: retired Cognitive needs: Yes (cane) Hearing needs: No Vision needs: No Physical Exam ED Vital Signs: Vital Signs - 24 hr 08/19/25 11:56 Temperature 98.3 F Pulse Rate 35 L Respiratory Rate 16 Blood Pressure 161/35 H Pulse Oximetry 98 Oxygen Delivery Method Room Air BMI result Body Mass Index 22.6 Course Reevaluation(s) Reevaluation #1: waiting for [facility] call back Time: 12:40 Reevaluation #2: Dr Richards seeing the pt Reevaluation #3: accepted by [facility] Dr Peña Time: 13:07 Medical Decision Making Medical Decision Making [facility] Narrative: Patient presented to the emergency department complaining of bradycardia dyspnea on exertion, EKG was reviewed with the exhaust and muffler repairer Dr. Richards, he recommended transfer to tertiary center. At this time 12:[address] a call to [facility] 12:41 waiting for [facility] call back Differential Diagnosis Differential Diagnoses: The differential diagnosis associated with the presentation includes Heart block/ Admission/Observation Consideration of admission/observation: Escalation of care including admission/observation considered Lab Data [facility] Lab Attestation statement: I reviewed the patient's lab results. 08/19/25 12:21 08/19/25 12:11 Labs: Lab Results 08/19/25 08/19/25 Range/Units 12:11 12:21 WBC 9.7 (4.8-10.8) X10*3/uL RBC 2.79 L (4.60-5.80) X10*6/uL Hgb 10.2 L (14.0-18.0) g/dl Hct 30.2 L (42.0-52.0) % MCV 108.2 H (80.0-98.0) fL MCH 36.6 H (27.0-33.0) pg MCHC 33.8 (31.0-36.0) g/dl RDW 14.6 (11.0-16.0) % Plt Count 252 (160-400) X10*3/uL MPV 10.7 (9.4-12.4) fL Immature Gran % (Auto) 0.3 (0.0-0.4) % Neut % (Auto) 74.8 H (45-73) % Lymph % (Auto) 14.9 L (20-40) % [place] % (Auto) 8.9 (2-11) % Eos % (Auto) 0.7 (0-4) % Baso % (Auto) 0.4 (0-2) % Lymph # (Auto) 1.5 (1.2-4.9) X10*3/uL [place] # (Auto) 0.9 (0.1-1.2) X10*3/uL Eos # (Auto) 0.1 (0.0-0.4) X10*3/uL Baso # (Auto) 0.0 (0.0-0.2) X10*3/uL Abs Immat Gran (auto) 0.03 (0.00-0.03) X10*3/uL Absolute Neuts (auto) 7.3 (2.0-8.3) x10*3/uL Absolute Nucleated RBC 0.020 H (0.0-0.012) X10*3/uL Nucleated RBC % (auto) 0.2 (0.0-0.2) /100WBC PT 13.1 (11.2-13.5) SEC INR 1.1 (0.9-1.1) Sodium 142 (135-145) mmol/L Potassium 4.7 (3.3-5.1) mmol/L Chloride 111 H (96-108) mmol/L Carbon Dioxide 21 L (22-29) mmol/L Anion Gap 15 (12-20) BUN 27 H (9-16) mg/dL Creatinine 1.20 (0.5-1.4) mg/dL Estim Creat Clear Calc 57.7 Estimated GFR 60 Random Glucose 118 H (60-115) mg/dL Calcium 8.9 (8.4-10.2) mg/dL Magnesium 2.1 (1.6-2.6) mg/dL Total Bilirubin 0.6 (0.0-1.0) mg/dL AST 79 H (5-37) U/L ALT 106 H (0-40) U/L Alkaline Phosphatase 107 (39-117) U/L Troponin I High Sens 6.8 (<3.5-35.0) ng/L NT-Pro-B Natriuret Pep 4643.8 H (<300) pg/mL Total Protein 6.8 (6.5-8.0) g/dL Albumin 4.2 (3.5-5.0) g/dL Ethyl Alcohol < 10 mg/dL Independent Interpretation I performed an independent interpretation of an: EKG Interpretation: Third-degree AV block Critical Care Time Critical Care Time Critical Care Time: Yes Total Critical Care Time: 90 Attestation: Tachycardic the patient/speaking with exhaust and muffler repairer/arranging the transfer to [facility] Discharge Plan Discharge Clinical Impression: CHB (complete heart block) Patient Disposition: Xfer Acute Care Hospital Transfer Details: Need the pacemaker Prescriptions: No Action cyanocobalamin (vitamin B-12) 3,000 mcg capsule 3,000 mcg PO DAILY meloxicam 15 mg tablet 15 mg PO DAILY PRN Print Language: Telugu
--- OUTSIDE RECORDS SUMMARY | 2025-08-19 12:16 | XMS_ITS | Clinical Summary ---
Author Organization [facility] Address [address] [place] [address] Care Team Providers Care Reroller Hand Name Role Phone Boni Man Primary Care Provider [phone] Allergies Active Allergy Reactions Criticality Noted Date [...] age to complete this topic Insurance MEDICARE [facility] SUPP Care Teams Reroller Hand Relationship Specialty Start Date End Date Boni Man [address] [place] [address] [place] [address] PCP - General Internal Medicine 11/11/22
--- OUTSIDE RECORDS SUMMARY | 2025-08-19 12:16 | XMS_ITS | Patient Health Record ---
Author Organization [facility] Address [address] [place] [address] Care Team Providers Care Airplane Mechanic Apprentice Name Role Phone Boni Man MD Primary Care Provider Dwaine Perez Jr Unavailable Allergies Allergen (clinical drug ingredient) Drug/Non Drug Allergy documented on EMR Reaction Allergy Type Onset Date Status Information temporarily unavailable Enoxaparin Unknown Drug Allergy Active Reason For Referral No Information Medications Medication SIG (Take, Route, Frequency, Duration) Notes Start Date End Date Status MiraLax (colon prep) 17 GM/SCOOP Powder mixed with Gatorade or Crystal Light Orally begin at 5:00 p.m. the day before the procedure; Duration: 1 day 08/10/2023 Active Vitamin B 12 100 MCG Lozenge as directed Orally Active Meloxicam 15 MG Tablet 1 tablet Orally O nce a day; Duration: 30 day(s) Active Immunizations Vaccine Route Administration Date Status Comme nts Influenza Unknown 08/13/2018 Administered Influenza Unknown 07/22/2023 Administered Social History Tobacco Use: Social History Observation Description Date Details (start date - stop date) Never Smoker NA - NA Social History Drugs/Alcohol: Social Info Question Answer Notes Alcohol Screen Did you have a drink containing alcohol in the past year? Yes How often did you have a drink containing alcohol in the past year? 4 or more times a week (4 points) How many drinks did you have on a typical day when you were drinking in the past year? 1 or 2 drinks (0 point) How often did you have 6 or more drinks on one occasion in the past year? Never (0 point) Points 4 Interpretation Positive Tobacco Use: Social Info Question Answer Notes Tobacco Use/Smoking Patient is a nonsmoker Additional Details Category Social Info Options Details Miscellaneous: Marital status: Occupation: retired Problems Problem Type SNOMED Code ICD Code Onset Dates Problem Status W/U Status Risk Notes Problem Information temporarily unavailable Colon cancer screening (Z12.11) Active confirmed Problem Information temporarily unavailable Encounter for long-term (current) use of NSAIDs (Z79.1) Active confirmed Problem Information temporarily unavailable Anemia, unspecified type (D64.9) Active confirmed Problem Information temporarily unavailable Hypertension, unspecified type (I10) Active confirmed Plan Of Treatment Future Test Test Name Order Date COLONOSCOPY 06/15/2019 COLONOSCOPY 08/10/2023 Insurance Providers Payer Name Payer Address Payer Phone Subscriber Number Group Number Insured Name Patient Relationship to Insured Coverage Start Date Coverage End Date MEDICARE OF [place] [address] [place] [address] [id number] CIELO SILVA Self - patient is the insured MEDEX ATTN CLAIMS [address] [place] [address] [id number] CIELO SILVA Self - patient is the [...]
[2025-08-19 12:25] LABS: MANUAL DIFF FLAG NO
[2025-08-19 12:28] LABS: Hematocrit 30.2 % (42.0-52.0); Hemoglobin 10.2 g/dl (14.0-18.0); Imm Gran Abs Auto 0.03 X10*3/uL (0.00-0.03); Imm Gran Pct Auto 0.3 % (0.0-0.4); Lymphocytes Absolute Auto 1.5 X10*3/uL (1.2-4.9); Mean Corpuscular HGB Conc 33.8 g/dl (31.0-36.0); Mean Corpuscular Hemoglobin 36.6 pg (27.0-33.0); Mean Corpuscular Volume 108.2 fL (80.0-98.0); NRBC Abs Auto 0.020 X10*3/uL (0.0-0.012); NRBC Pct Auto 0.2 /100WBC (0.0-0.2); Platelet Count 252 X10*3/uL (160-400); Red Blood Count 2.79 X10*6/uL (4.60-5.80); White Blood Count 9.7 X10*3/uL (4.8-10.8)
[2025-08-19 12:29] LABS: INTERNATIONAL NORM RATIO 1.1 (0.9-1.1); Prothrombin Time 13.1 SEC (11.2-13.5)
[2025-08-19 12:36] LABS: Alanine Aminotransferase 106 U/L (0-40); Albumin Level 4.2 g/dL (3.5-5.0); Alkaline Phosphatase 107 U/L (39-117); Anion Gap 15 (12-20); Aspartate Amino Transferase 79 U/L (5-37); Blood Urea Nitrogen 27 mg/dL (9-16); Calcium 8.9 mg/dL (8.4-10.2); Carbon Dioxide 21 mmol/L (22-29); Chloride 111 mmol/L (96-108); Creatinine Clr Calc Pharmacy 57.7; Estimated Glomerular Filt Rate 60; Magnesium 2.1 mg/dL (1.6-2.6); Potassium 4.7 mmol/L (3.3-5.1); Sodium 142 mmol/L (135-145); Total Protein 6.8 g/dL (6.5-8.0)
[2025-08-19 12:46] LABS: Troponin-I High Sensitivity 6.8 ng/L (<3.5-35.0)
--- NOTE | 2025-08-19 12:57 | PC.NURSE ---
Defib pads in place, code cart at bedside if needed. Patient denies chest pain at this time, reports SOB when using stairs. Heart rate 30s-40s with block noted on monitor. States that he went to urgent care on Thursday with similar complaint and was advised to come to ED if problem persists or worsens. 20g IV access established to right forearm. IV is patent/intact. Patient denies any cardiac history, states only medication that he takes is Vitamin B12. Had cervical spine surgery at [facility] on August 07, 2025, without complications. Dry/Clean/Intact dressing noted to anterior neck. Awaiting response from [facility] for transfer, pending accepting physician/report by Dr. Lechuga. Patient is alert/oriented/calm/cooperative. Care ongoing by this RN.
--- NOTE | 2025-08-19 13:10 | PM.CNCAR ---
History of Present Illness History of Present Illness Date of Service: 08/19/25 Requesting physician: Allen Lechuga Chief complaint: Complete heart block Narrative: Pleasant 70 year gentleman who is presenting with dizziness and shortness of breath ongoing over the last week. He underwent cervical spine surgery for spinal cord compression at [facility] and left the hospital on August 07 by his report. He said that he was doing fine but started noticing some dizziness and lightheadedness. He checked his pulse and it was in 30s to 40s. He also noticed that his blood pressure was elevated. He said when he is climbing stairs he gets out of breath which is new but he has not passed out. No chest discomfort. EKGs in the ER is showing complete heart block with a right bundle-branch block and left anterior fascicular block. Old EKG did have first-degree AV block, right bundle-branch block and left anterior fascicular block. He is currently stable and has no hypotension or symptoms at rest. [facility] Past Medical History Medical History Inguinal hernia Epigastric pain Neuropathy Cervical radiculitis Epigastric hernia Spinal stenosis CTS (carpal tunnel syndrome) GERD (gastroesophageal reflux disease) Anemia Left leg DVT Surgical History Surgical History History of lumbar laminectomy for spinal cord decompression History of carpal tunnel release History of bone marrow biopsy Status post left hip replacement History of cataract surgery S/P left knee arthroscopy History of laminectomy Hip osteoarthritis Social History Social History (Updated 12/07/24 @ 09:43 by Boni Man MD) Housing: House Alcohol intake: current Alcohol intake frequency: 0-2 drinks per day Alcohol type: beer Comment: 2 x a week 1-2 drinks Patient Tobacco Use Status: Never used Tobacco e-Cigarette/Vaping Use: Never Used Second Hand Smoke Exposure: No Advance Directives: No Advance Directives Information Provided: Yes Do you have a plan to hurt others: No Plan service: No Current occupational status: retired Cognitive needs: Yes (cane) Hearing needs: No Vision needs: No Meds Allergies Allergy/AdvReac Type Severity Reaction Status Date / Time enoxaparin Allergy Mild Hypertension, Verified 08/19/25 12:00 burning on injection Home Medications ?Medication ?Instructions ?Recorded ?Confirmed ?Last Taken ?Type cyanocobalamin (vitamin B-12) 3,000 mcg PO DAILY 07/28/23 12/07/24 Unknown History 3,000 mcg capsule meloxicam 15 mg tablet 15 mg PO DAILY PRN 08/16/25 Unknown History Physical Exam Vital Signs: Vital Signs: Last Vital Signs Temp 98.3 F 08/19/25 11:56 Pulse 35 L 08/19/25 11:56 Resp 16 08/19/25 11:56 BP 161/35 H 08/19/25 11:56 Pulse Ox 98 08/19/25 11:56 O2 Del Method Room Air 08/19/25 11:56 BMI result Body Mass Index 22.6 GENERAL APPEARANCE: in no acute distress, pleasant. NECK: no carotid bruit, positive jugular venous distention/ball A-waves. SKIN: no suspicious lesions, warm and dry. HEART: no murmurs, regular rate and rhythm. Bradycardic. LUNGS: clear to auscultation bilaterally. ABDOMEN: soft, nontender. EXTREMITIES: no edema. PERIPHERAL PULSES: equal. NEUROLOGIC: No gross deficits, AAO X 3 Objective Labs and Meds 08/19/25 12:21 08/19/25 12:11 Lab results: Laboratory Results - last 24 hr 08/19/25 08/19/25 12:11 12:21 WBC 9.7 RBC 2.79 L Hgb 10.2 L Hct 30.2 L MCV 108.2 H MCH 36.6 H MCHC 33.8 RDW 14.6 Plt Count 252 MPV 10.7 Immature Gran % (Auto) 0.3 Neut % (Auto) 74.8 H Lymph % (Auto) 14.9 L [place] % (Auto) 8.9 Eos % (Auto) 0.7 Baso % (Auto) 0.4 Lymph # (Auto) 1.5 [place] # (Auto) 0.9 Eos # (Auto) 0.1 Baso # (Auto) 0.0 Abs Immat Gran (auto) 0.03 Absolute Neuts (auto) 7.3 Absolute Nucleated RBC 0.020 H Nucleated RBC % (auto) 0.2 PT 13.1 INR 1.1 Sodium 142 Potassium 4.7 Chloride 111 H Carbon Dioxide 21 L Anion Gap 15 BUN 27 H Creatinine 1.20 Estim Creat Clear Calc 57.7 Estimated GFR 60 Random Glucose 118 H Calcium 8.9 Magnesium 2.1 Total Bilirubin 0.6 AST 79 H ALT 106 H Alkaline Phosphatase 107 Troponin I High Sens 6.8 NT-Pro-B Natriuret Pep 4643.8 H Total Protein 6.8 Albumin 4.2 Ethyl Alcohol < 10 Assessment and Plan (1) CHB (complete heart block): Status: Acute Plan Pleasant 70 year gentleman presenting with dyspnea and dizziness and is noticed to have complete heart block. He did have conduction system disease with first-degree AV block, right bundle-branch block and left anterior fascicular block at baseline. Clinically he is stable currently. Heart rates are anywhere from high 30s to 40 beats per minute. Blood pressure is stable. He needs permanent pacemaker placement. His blood workup has not shown hyperkalemia or any other reversible cause for heart block. He is not on any medications to explain this. He does have a dressing over the left carotid from recent spinal surgery but this is not a pressure dressing and I doubt that block is related with carotid sinus stimulation. We will transfer him to [facility] for further assessment and pacemaker placement. He has been accepted by the CCU team/Dr. Mo. Thank you for allowing me to participate in the care of your patient. Please feel free to contact me if you have any questions. Procedures Date of Service Date of Service: 08/19/25
--- NOTE | 2025-08-19 16:00 | PC.NURSE ---
Assumed care of this patient at 1500. Pt noted to be bradycardic (has been during entirety of ED stay) and hypotensive (new) Dr. Lechuga made aware, to order fluids. Pt still waiting for bed at CCU at [facility].
[2025-08-19 16:08] VITALS: BP 107/36; PULSE 33; RESP 14; TEMP 37; O2SAT 97
[2025-08-19 17:26] VITALS: BP 93/48; PULSE 32; RESP 12; O2SAT 98
[2025-08-19 18:04] LABS: Troponin-I High Sensitivity 13.8 ng/L (<3.5-35.0)
[2025-08-19 18:19] LABS: Thyroid Stimulating Hormone 1.65 uIU/mL (0.32-4.0)
--- NOTE | 2025-08-19 19:31 | PC.NURSE ---
Attempted to call report to [facility], RN not ready for pt will call back.
[2025-08-19 19:33] VITALS: BP 134/47; PULSE 32; RESP 16; O2SAT 96
[2025-08-19 20:01] VITALS: BP 134/47; PULSE 32; RESP 16; TEMP -17.7; TEMP 0; O2SAT 96
--- NOTE | 2025-08-19 20:02 | PC.NURSE ---
RN to RN report given to Yuliana @ [facility], pt currently en route to [facility] CCU
[2025-08-22 09:19] LABS: Lyme Abs Screen <0.90 index
== END 2025-08-19 20:03 | disposition short-term general hospital (02) ==
PROVIDERS: Emergency Medicine; Emergency Provider Emergency Medicine; PCP Internal Medicine
DX: I44.2 Atrioventricular block, complete (principal); R06.02 Shortness of breath; R00.0 Tachycardia, unspecified; R11.0 Nausea; Z51.81 Encounter for therapeutic drug level monitoring; Z79.899 Other long term (current) drug therapy
CPT/HCPCS: 36415; 71045; 80053; 80307; 83735; 83880; 84443; 84484; 85025; 85610; 86617; 86618; 93005; 96360; 96361; 99285

== ENCOUNTER → 2025-08-19 12:12 | Outpatient (BNV) | payer MEDICARE, SELFPAY | PROVIDERS: Emergency Provider Emergency Medicine; PCP Internal Medicine; Visit Provider Internal Medicine Cardiovascular Disease | DX: I45.10 Unspecified right bundle-branch block (principal); I44.4 Left anterior fascicular block; I44.1 Atrioventricular block, second degree; R00.0 Tachycardia, unspecified | CPT/HCPCS: 93010 ==

== ENCOUNTER → 2025-08-19 12:14 | Outpatient (BNV) | payer MEDICARE, SELFPAY | PROVIDERS: Emergency Provider Emergency Medicine; PCP Internal Medicine; Visit Provider Radiology Diagnostic Radiology | DX: R06.02 Shortness of breath (principal) | CPT/HCPCS: 71045 ==

== ENCOUNTER 2025-08-24 15:21 | Outpatient (AMB) | payer MEDICARE, SELFPAY ==
[2025-08-24 15:22] VITALS: BP 146/82; PULSE 83; RESP 18; O2SAT 96; BMI 24.3
--- NOTE | 2025-08-24 15:22 | MHC.PC.OV ---
Vital Signs 08/24/25 15:22 Height 5 ft 11 in Weight 174 lb 4 oz BMI 24.3 BP 146/82 H Blood Pressure Location Lt brachial Position Sitting Respiration 18 Pulse 83 Pulse Source Pulse Oximeter Temp Source Temporal Artery Scan Pulse Oximetry (%) 96 Oxygen Delivery Method Room Air Intake Visit Reasons: [facility] 08/22 Pillowcase Cutter Required: No Accompanied by: Self / Same As Patient Allergies enoxaparin Allergy (Mild, Verified 08/24/25 15:36) Hypertension, burning on injection Medication List - Last Reconciled 08/24/25 by Ally Perez PA-C cyanocobalamin (vitamin B-12) 3,000 mcg PO DAILY meloxicam 15 mg PO DAILY PRN Tobacco use date assessed: 08/24/25 Fall risk assessment: No Falls in past year Last assessed Fall Risk: 08/24/25 Dental Screening Dental Screen Date: 08/24/25 Did you have a dental visit in the last 12 months?: Yes Did you have a dental problem in the last 6 months where you did not have access to dental care?: No Was dental information given to patient?: Patient has dentist HPI [facility] 08/22 HPI Details 70 year old male with past medical history of anemia, GERD, impaired glucose tolerance, and interstitial lung disease last seen by Dr. Man 11/2024 coming in for hospital follow up. In review of the notes, patient was seen in [facility] 08/19/2025 for SOB found to have heart block and transferred to [facility]. At [facility] patient underwent pacemaker placement 08/21/2025 and discharged 08/22/2025 to follow up with cardiology. Presenting for post-operative follow-up after recent pacemaker implantation and evaluation of a new cough. He reports having a pacemaker placed on Thursday at [facility] after presenting to a walk-in clinic on Thursday and the ER on Thursday for bradycardia, with his pulse noted to be 30-31 bpm and dropping to 18 bpm during surgery. He has developed a dry cough over the last day and a half, which is associated with some mild discomfort in the center of his chest around the surgical site. He denies any fever, shortness of breath, or productive cough. The patient's pacemaker incision has a waterproof patch and he denies any pain or drainage from the site. [facility] Medical History Inguinal hernia Epigastric pain Neuropathy Cervical radiculitis Epigastric hernia Spinal stenosis CTS (carpal tunnel syndrome) GERD (gastroesophageal reflux disease) Anemia Left leg DVT Surgical History History of lumbar laminectomy for spinal cord decompression History of carpal tunnel release History of bone marrow biopsy Status post left hip replacement History of cataract surgery S/P left knee arthroscopy History of laminectomy Hip osteoarthritis Social History Housing: House Alcohol intake: current Alcohol intake frequency: 0-2 drinks per day Alcohol type: beer Comment: 2 x a week 1-2 drinks Patient Tobacco Use Status: Never used Tobacco e-Cigarette/Vaping Use: Never Used Second Hand Smoke Exposure: No service: No Current occupational status: retired Cognitive needs: Yes (cane) Hearing needs: No Vision needs: No Questionnaire PHQ-9 Over the last 2 weeks, how often have you been bothered by any of the following problems? 1. Little interest or pleasure in doing things: not at all 2. Feeling down, depressed, or hopeless: not at all 3. Trouble falling or staying asleep, or sleeping too much: not at all 4. Feeling tired or having little energy: several days 5. Poor appetite or overeating: not at all 6. Feeling bad about yourself - or that you are a failure or have let yourself or your family down: not at all 7. Trouble concentrating on things, such as reading the newspaper or watching television: not at all 8. Moving or speaking so slowly that other people could have noticed. Or the opposite - being so fidgety or restless that you have been moving around a lot more than usual: not at all 9. Thoughts that you would be better off or of hurting yourself in some way: not at all Total score: 1 Source: Developed by Drs. Silvano Boudreaux, Dinah Pabon, Jacky Drummond and colleagues, with an educational mary ellen from [employer]. Thrive Questionnaire Date Thrive assessed: 08/24/25 I am a: Patient What is your living situation today?: I have a steady place to live Within the past 12 months, did the food you bought not last and you didn't have the money to get more?: Never true Within the past 12 months, did you worry whether your food would run out before you got money to buy more?: Never true Do you have trouble paying for medicines?: No Do you have trouble getting transportation to medical appointments?: No Do you have trouble paying your heating and electricity bill?: No Do you have trouble taking care of your child, family member or friend?: No Do you have trouble with day-to-day activities such as bathing, preparing meals, shopping, managing finances, etc.?: No Are you currently unemployed and looking for a job?: No Are you interested in more education?: No Please select the resources that you would like help with: None Currently or been in a relationship where the following occur: No concerns reported THRIVE Score: 0 AUDIT C Alcohol Use Questionnaire (AUDIT-C) 1. How often do you have a drink containing alcohol?: 2-3 times a week Total Score: 3 ALEJANDRA-7 AMB Questionnaire ALEJANDRA-7 Date ALEJANDRA - 7 assessed: 08/24/25 Feeling nervous, anxious, or on edge: 0 = Not at all Not being able to stop or control worryin = Not at all Worrying too much about different things: 0 = Not at all Trouble relaxin = Not at all Being so restless that it is hard to sit still: 0 = Not at all Becoming easily annoyed or irritable: 0 = Not at all Feeling afraid as if something awful might happen: 0 = Not at all Total ALEJANDRA-7 score (0-4 normal; 5-9 mild; 10-14 moderate; 15-21 severe): 0 Source: Developed by Drs. Silvano Boudreaux, Dinah Pabon, Jacky Drummond and colleagues, with an educational mary ellen from [employer]. Review of Systems Const Denies body aches, Denies chills, Denies fever(s), Denies headache(s) and Denies poor appetite Eyes Reports no additional complaints ENT Denies dizziness and Denies headache(s) Card Denies chest pain, Denies edema, Denies irregular heart rhythm, Denies lightheadedness and Denies dyspnea Resp Reports cough (as per HPI ), Denies hemoptysis, Denies excessive phlegm production and Denies dyspnea GI Denies abdominal pain, Denies nausea and Denies vomiting Reports no additional complaints Musc Reports no additional complaints and Denies abnormal gait Skin/Breast Reports system reviewed and no additional complaints, except as documented Neuro Denies abnormal gait, Denies dizziness and Denies headache(s) Psych Reports no additional complaints Physical exam (Primary Care) Vital Signs: Last Vital Signs Pulse 83 08/24/25 15:22 Resp 18 08/24/25 15:22 BP 146/82 H 08/24/25 15:22 Pulse Ox 96 08/24/25 15:22 Oxygen Delivery Method Room Air 08/24/25 15:22 BMI result Body Mass Index 24.3 Tobacco/Smoking Status: Tobacco use Status Tobacco use date assessed 08/24/25 08/24/25 15:29 Patient Tobacco Use Status Never used Tobacco 08/24/25 15:29 e-Cigarette/Vaping Use Never Used 08/24/25 15:29 PHQ-9: PHQ-9 Score PHQ-9: Total score 1 08/24/25 15:29 Thrive Assessment: Date of Thrive Assessment Date Thrive assessed 08/24/25 08/24/25 15:29 Currently or been in a relationship where the following occur: No concerns reported Const General: cooperative, healthy appearing, comfortable and no acute distress Orientation/consciousness: patient oriented x3 HENMT Head: Yes normocephalic Ears: hearing grossly normal bilaterally General nose exam: Normal external nose present Eyes General: appearance normal, both eyes and all related structures Conjunctivae: conjunctivae normal Neck Neck: Yes full ROM and Yes no lymphadenopathy Resp Effort & Inspection: normal respiratory effort Auscultation: clear to auscultation bilaterally, no crackles, no rales, no rhonchi and no wheezes Cardio Rate: regular rate Rhythm: regular rhythm Skin General skin exam: no rashes or lesions noted Neuro General: patient oriented x3 Gait exam (Neuro): Normal gait present Extrem General: Yes normal to inspection, Yes full ROM and No edema Psych Affect: normal affect Attitude: cooperative Insight: Good insight present (Psych) Judgement: Good judgement present (Psych) Coding Level of Care Code Est Pt Level 3 (40810) Diagnoses Heart block I45.9 Cough R05.9 Assessment & Plan Assessment & Plan (1) Heart block: Code(s): I45.9 - Conduction disorder, unspecified Category: Medical Plan: The patient is recovering well from his recent pacemaker implantation. The incision site is not directly visualized but surrounding area is clean, dry, and intact with a waterproof dressing in place, and there are no signs of infection. He will contact his associate professor computer science to schedule a follow-up, which should include a wound check in 7-14 days and a visit with the doctor in 3-4 weeks. The dressing will be left in place until he is seen by cardiology. (2) Cough: Code(s): R05.9 - Cough, unspecified Category: Medical Plan: The patient reports a new, dry cough for a day with some central chest discomfort, likely related to his recent surgery. His lung exam today is clear. An order for a chest x-ray will be placed, and he is advised to have it done if the cough worsens or does not improve. Plan This note was constructed using voice recognition software. While every effort has been made to ensure accuracy and commercial lending vice president, still areas may have been included sometimes these areas may affect the content or meeting of the given symptoms. Total time spent caring for the patient today was 20 minutes. This includes time spent before the visit reviewing the chart, time spent during the visit, and time spent after the visit and documentation. Patient was informed and verbally consented to the use of an ambient scribe for clinic note documentation during this visit. Orders: Orders XR chest 2V Today R05.9 - Cough, unspecified
== END 2025-08-24 16:06 | disposition home or self-care (01) ==
LOC: HO.HMCH 15:22
PROVIDERS: PCP Internal Medicine
DX: I45.9 Conduction disorder, unspecified (principal); R05.9 Cough, unspecified

== ENCOUNTER → 2025-08-24 15:21 | Outpatient (BNVA) | payer MEDICARE, SELFPAY | PROVIDERS: PCP Internal Medicine | DX: I45.9 Conduction disorder, unspecified (principal); R05.9 Cough, unspecified | CPT/HCPCS: 99212 ==

== ENCOUNTER 2025-09-13 08:50 | Outpatient (AMB) | payer MEDICARE, SELFPAY ==
--- NOTE | 2025-09-13 08:54 | MHC.PC.OV ---
Vital Signs 09/13/25 08:55 Height 5 ft 11 in Weight 170 lb 6 oz BMI 23.8 BP 118/70 Blood Pressure Location Lt brachial Position Sitting Pulse 82 Pulse Source Pulse Oximeter Temp 97.3 F Temp Source Temporal Artery Scan Pulse Oximetry (%) 97 Oxygen Delivery Method Room Air Intake Visit Reasons: [facility] For Anemia Intake Note: Patient is here to follow up on Anemia. Plow Mechanic Required: No Flat Examiner: Not Required per policy Accompanied by: Self / Same As Patient Allergies enoxaparin Allergy (Mild, Verified 09/13/25 09:21) Hypertension, burning on injection Medication List - Last Reconciled 09/13/25 by Raymond Burden PA-C cyanocobalamin (vitamin B-12) 3,000 mcg PO DAILY meloxicam 15 mg PO DAILY PRN Tobacco use date assessed: 09/13/25 Fall risk assessment: No Falls in past year Last assessed Fall Risk: 09/13/25 Dental Screening Dental Screen Date: 08/24/25 HPI [facility] For Anemia HPI Details Patient is a 70-year-old male here today for follow-up visit. Patient has past medical history significant for complete heart block, interstitial lung disease, history of left leg DVT, anemia. He has a history of macrocytic anemia for approximately 25 years, noting it has worsened recently following a hospitalization. About five years ago, he was evaluated by hematology, which included a bone marrow biopsy and aspiration that were reportedly within range. He has also had a colonoscopy to rule out a gastrointestinal source of blood loss. He reports taking 3,000 mg of B12 daily. Past medical history is significant for complete heart block, which was monitored for approximately 20 years before it came to a head. He was recently hospitalized on August 19 and received a pacemaker on August 21. He reports being less winded on stairs since the pacemaker procedure. He has a history of interstitial lung disease, diagnosed after a chest x-ray showed a ground-glass appearance about 5-6 years ago. He sees a book sewer and undergoes pulmonary function tests annually, which he passes. Additional history includes a left leg DVT, arthritis for which he takes meloxicam as needed, and easy bruising. [facility] Medical History Inguinal hernia Epigastric pain Neuropathy Cervical radiculitis Epigastric hernia Spinal stenosis CTS (carpal tunnel syndrome) GERD (gastroesophageal reflux disease) Anemia Left leg DVT Surgical History History of permanent cardiac pacemaker placement History of lumbar laminectomy for spinal cord decompression History of carpal tunnel release History of bone marrow biopsy Status post left hip replacement History of cataract surgery S/P left knee arthroscopy History of laminectomy Hip osteoarthritis Social History Housing: House Alcohol intake: current Alcohol intake frequency: 0-2 drinks per day Alcohol type: beer Comment: 2 x a week 1-2 drinks Patient Tobacco Use Status: Never used Tobacco e-Cigarette/Vaping Use: Never Used Second Hand Smoke Exposure: No service: No Current occupational status: retired Cognitive needs: Yes (cane) Hearing needs: No Vision needs: No Questionnaire Thrive Questionnaire Date Thrive assessed: 08/23/25 I am a: Patient What is your living situation today?: I have a steady place to live Within the past 12 months, did the food you bought not last and you didn't have the money to get more?: Never true Within the past 12 months, did you worry whether your food would run out before you got money to buy more?: Never true Do you have trouble paying for medicines?: No Do you have trouble getting transportation to medical appointments?: No Do you have trouble paying your heating and electricity bill?: No Do you have trouble taking care of your child, family member or friend?: No Do you have trouble with day-to-day activities such as bathing, preparing meals, shopping, managing finances, etc.?: No Are you currently unemployed and looking for a job?: No Are you interested in more education?: No Currently or been in a relationship where the following occur: No concerns reported THRIVE Score: 0 ALEJANDRA-7 AMB Questionnaire ALEJANDRA-7 Date ALEJANDRA - 7 assessed: 08/24/25 Source: Developed by Drs. Silvano Boudreaux, Dinah Pabon, Jacky Drummond and colleagues, with an educational mary ellen from [employer]. Review of Systems Const Denies headache(s) Eyes Denies loss of vision ENT Denies vertigo, Denies dizziness, Denies headache(s) and Denies sore throat Card Denies chest pain, Denies leg edema, Denies lightheadedness and Reports dyspnea on exertion Resp Denies cough, Denies hemoptysis, Reports dyspnea on exertion and Denies wheezing GI Denies abdominal pain, Denies melena, Denies constipation, Denies diarrhea and Denies vomiting Denies dysuria, Denies urinary frequency and Denies urinary urgency Musc Denies arthralgias, Denies joint swelling, Denies numbness and Denies tingling Neuro Denies Abnormal speech present, Denies behavioral changes, Denies vertigo, Denies dizziness, Denies headache(s), Denies loss of vision, Denies memory loss, Denies numbness and Denies tingling Psych Denies anxiety, Denies behavioral changes, Denies depression, Denies memory loss and Denies panic attacks Gregg/Lymph Denies easy bleeding and Denies easy bruising Aller/Immun Denies wheezing Physical exam (Primary Care) Vital Signs: Last Vital Signs Temp 97.3 F 09/13/25 08:55 Pulse 82 09/13/25 08:55 BP 118/70 09/13/25 08:55 Pulse Ox 97 09/13/25 08:55 Oxygen Delivery Method Room Air 09/13/25 08:55 BMI result Body Mass Index 23.8 Tobacco/Smoking Status: Tobacco use Status Tobacco use date assessed 09/13/25 09/13/25 09:01 Patient Tobacco Use Status Never used Tobacco 09/13/25 09:01 e-Cigarette/Vaping Use Never Used 09/13/25 09:01 Thrive Assessment: Date of Thrive Assessment Date Thrive assessed 08/23/25 09/13/25 09:01 Currently or been in a relationship where the following occur: No concerns reported Const General: healthy appearing, no acute distress, alert and awake Nutritional Appearance: well nourished Orientation/consciousness: oriented to person, oriented to place and oriented to time HENMT Ears: TM's normal bilaterally General nose exam: Normal nasal mucous membranes and turbinates present Eyes Conjunctivae: conjunctivae normal Sclerae: sclerae normal Pupils: Equal, round and reactive pupils present Neck Neck: Yes no lymphadenopathy and Yes no JVD Thyroid: Thyroid normal Carotids: no bruits Resp Effort & Inspection: normal respiratory effort and not tachypneic Auscultation: no crackles, no rales, no rhonchi and no wheezes Cardio Rate: regular rate Rhythm: regular rhythm Heart sounds: no murmurs and normal S1 and S2 GI Palpation (GI): Soft to palpation, nontender, no hepatomegaly and no splenomegaly Auscultation: normal bowel sounds Skin General skin exam: no rashes or lesions noted and dry skin Neuro General: oriented to person, oriented to place and oriented to time Cranial nerves: Yes Equal, round and reactive pupils present Speech: No Abnormal speech present Gait exam (Neuro): Normal gait present Motor exam (neuro): no tremor noted Extrem Right upper extremity: full ROM Left upper extremity: full ROM Right lower extremity: full ROM; no edema Left lower extremity: full ROM; no edema Psych Mental Status: mental status grossly normal Speech and movement: Normal speech and movement present Affect: normal affect Attitude: cooperative Thought process: Normal thought process present Coding Level of Care Code Est Pt Level 3 (19460) Diagnoses Macrocytic anemia D53.9 Assessment & Plan Assessment & Plan (1) Macrocytic anemia: Code(s): D53.9 - Nutritional anemia, unspecified Category: Medical Plan: The patient's primary issue is a long-standing macrocytic anemia that has recently worsened. Despite a previous hematology workup including a bone marrow biopsy, a definitive cause has not been established. Common causes such as B12/folate deficiency, significant alcohol use, and thyroid disease appear to have been ruled out. The anemia is likely multifactorial, potentially stemming from anemia of chronic disease related to his complete heart block and interstitial lung disease. The recent decline in hemoglobin may be partially attributable to frequent phlebotomy during his recent hospitalization. Orders: Referrals Hematology & Oncology Referral D53.9 - Nutritional anemia, unspecified
[2025-09-13 08:55] VITALS: BP 118/70; PULSE 82; TEMP 36.3; O2SAT 97; BMI 23.8
--- OUTSIDE RECORDS SUMMARY | 2025-09-13 08:56 | XMS_ITS | Clinical Summary ---
Author Organization [facility] Address [address] [place] [address] Care Team Providers Care Bridge Repair Crew Person Name Role Phone Boni Man Primary Care Provider [phone] Allergies Active Allergy Reactions Criticality Noted Date [...] 07/07/2023, 07/07/2022, Additional history exists COVID-19 Vaccine ( season) 2025 07/07/2023, 07/07/2022, 06/26/2021, Additional history [...] age to complete this topic Insurance MEDICARE [facility] SUPP Care Teams Bridge Repair Crew Person Relationship Specialty Start Date End Date Boni Man [address] [place] [address] [place] [address] PCP - General Internal Medicine 11/11/22
--- OUTSIDE RECORDS SUMMARY | 2025-09-13 08:56 | XMS_ITS | Patient Health Record ---
Author Organization [facility] Address [address] [place] [address] Care Team Providers Care Call Specialist Name Role Phone Boni Man MD Primary Care Provider Dwaine Perez Jr Unavailable [phone] Allergies Allergen (clinical drug ingredient) Drug/Non Drug [...] Problem Status W/U Status Risk Notes Problem Colon cancer screening (155132118) Colon cancer screening (Z12.11) Active confirmed Problem FDC current use of non-steroidal anti-inflammator y drug ([id number] ) Encounter for long-term (current) use of NSAIDs (Z79.1) Active confirmed Problem Anemia (649005983) Anemia, unspecified type (D64.9) Active confirmed Problem Essential hypertension (43310492) Hypertension, unspecified type (I10) Active confirmed Plan Of Treatment Future Test Test Name Order Date COLONOSCOPY 06/15/2019 COLONOSCOPY 08/10/2023 Insurance Providers Payer Name Payer Address Payer Phone Subscriber Number Group Number Insured Name Patient Relationship to Insured Coverage Start Date Coverage End Date MEDICARE OF [place] [address] [place] [address] [id number] CIELO SILVA Self - patient is the insured [employer] CLAIMS [address] [place] [address] [phone] [id number] CIELO SILVA Self - patient is the [...]
== END 2025-09-13 09:40 | disposition home or self-care (01) ==
LOC: HO.HMCH 08:51
PROVIDERS: PCP Internal Medicine; Visit Provider Physician Assistant
DX: D53.9 Nutritional anemia, unspecified (principal)

== ENCOUNTER → 2025-09-13 08:50 | Outpatient (BNVA) | payer MEDICARE, SELFPAY | PROVIDERS: PCP Internal Medicine; Visit Provider Physician Assistant | DX: D53.9 Nutritional anemia, unspecified (principal); J84.9 Interstitial pulmonary disease, unspecified; Z86.79 Personal history of other diseases of the circulatory system; Z86.718 Personal history of other venous thrombosis and embolism | CPT/HCPCS: 99212 ==